=== PATIENT | male | born 1960 | race Caucasian/White ===

== ENCOUNTER → 2023-11-12 | Outpatient (CLI) | payer OTHER, SELFPAY ==
--- NOTE | 2023-11-12 10:31 | RAD_ITS ---
EXAM: XR PELVIS, 1 OR 2 VIEWS CLINICAL INDICATION: PAIN TECHNIQUE: Frontal view of the pelvis. COMPARISON: No relevant prior studies available. FINDINGS: BONES/JOINTS: Degenerative findings in the lumbar spine. No displaced fracture. No destructive or sclerotic lesions. Note that overlapping bowel shadows may however obscure fine detail. Sacroiliac joints are unremarkable. No widening of the pubic symphysis. SOFT TISSUES: Unremarkable. No soft tissue swelling or gas. VASCULATURE: Calcified phleboliths in the pelvis. RAD/Pelvis 1 or 2 Views IMPRESSION: No acute findings in the pelvis. Electronically Signed: Angelo Mo MD at 15:04 EDT ,
[2023-11-12 12:20] LABS: Erythrocyte Sedimentation Rate 4 mm/hr (0-20)
[2023-11-12 12:23] LABS: Absolute Neutrophil Count 1.8 X10^3/uL (2.0-7.7); Basophil# 0.07 X10^3/uL; Basophil% 1.7 % (0-1); Eosinophil# 0.05 X10^3/uL; Eosinophils% 1.2 % (0-5); Hematocrit 47.6 % (40-54); Hemoglobin 15.7 g/dL (13.0-16.5); Lymphocyte % 30.8 % (19-41); Mean Corpuscular Volume 97.1 fL (80-94); Mean Platelet Vol. 10.5 fl (6.2-12.0); Monocyte# 0.97 X10^3/uL; NRBC Flagged by Analyzer 0 % (0-5); Neutrophil # 1.79 X10^3/uL (2.7-7.7); Neutrophil % 42.4 % (47-70); Platelet Count 254 K/mm3 (150-450); RBC Distribution Width CV 13.2 % (11.6-14.6); White Blood Count 4.2 K/mm3 (4.4-11.0)
[2023-11-12 13:07] LABS: Hepatitis B Surface Antibody Non-Reactive; Hepatitis B Surface Antigen Non-Reactive (Nonreactive); Hepatitis C Antibody Non-Reactive (Nonreactive)
[2023-11-12 13:22] LABS: AST(SGOT) 41 U/L (15-37); Alanine Aminotransfer ALT/SGPT 53 U/L (16-61); Albumin, Serum 3.8 g/dL (3.2-5.0); Alkaline Phosphatase 80 U/L (45-117); Anion Gap 8 (5-15); BUN 14 mg/dL (7-18); BUN/Creat Ratio 14.8 RATIO (10-20); Calcium,Total 9.6 mg/dL (8.5-10.1); Chloride 98 mmol/L (98-107); Creatinine, Serum 0.94 mg/dL (0.70-1.30); EST Glomerular Filtration Rate 86 mL/min (>60); Est Glom Filt Rate - Afr Amer 104 mL/min (>60); Globulin 3.7 g/dL (2.2-4.2); Glucose 93 mg/dL (74-106); Potassium 3.7 mmol/L (3.5-5.1); Protein, Total 7.5 g/dL (6.4-8.2); Rheumatoid Factor < 10.0 IU/mL (<15); Sodium Level 133 mmol/L (136-145)
[2023-11-15 09:07] LABS: ANTINUCLEAR ANTIBODIES DIRECT Negative (Negative)
[2023-11-19 17:07] LABS: CCP IgG Antibodies 0 units (0-19); HLA B27 Positive (.); QNTFERON TB Mitogen Value > 10.00 IU/mL (.); QNTFERON TB Nil Value 0.13 IU/mL (.); QNTFERON TB1+ Ag Value 0.16 IU/mL (.); QNTFERON TB2+ Ag Value 0.12 IU/mL (.); QNTIFERON TB Positive Criteria Negative (Negative)
== END | disposition home or self-care (01) ==
LOC: MTLAB 10:29
PROVIDERS: Referring Provider Internal Medicine Rheumatology; Visit Provider Internal Medicine Rheumatology
DX: M06.4 Inflammatory polyarthropathy (principal); M47.897 Other spondylosis, lumbosacral region
CPT/HCPCS: 36415; 72170; 80053; 81374; 85025; 85652; 86038; 86140; 86200; 86431; 86480; 86706; 86803; 87340

== ENCOUNTER → 2025-01-16 | Outpatient (CLI) | payer OTHER, SELFPAY ==
[2025-01-16 12:25] LABS: Absolute Lymphocyte Count 1.43 X10^3/uL (0.83-4.51); Absolute Neutrophil Count 2.9 X10^3/uL (2.0-7.7); Basophil# 0.09 X10^3/uL; Basophil% 1.7 % (0-1); Eosinophil# 0.33 X10^3/uL; Eosinophils% 6.1 % (0-5); Erythrocyte Sedimentation Rate 2 mm/hr (0-20); Hematocrit 42.9 % (40-54); Hemoglobin 14.4 g/dL (13.0-16.5); Lymphocyte # 1.43 X10^3/ul (0.83-4.51); Lymphocyte % 26.6 % (19-41); Mean Corp Hgb Conc 33.6 g/dL (32-36); Mean Corpuscular Hgb 32.7 pg (27.0-32.0); Mean Corpuscular Volume 97.3 fL (80-94); Mean Platelet Vol. 10.9 fl (6.2-12.0); Monocyte# 0.63 X10^3/uL; Monocyte% 11.7 % (0-10); NRBC Flagged by Analyzer 0 % (0-5); Neutrophil # 2.86 X10^3/uL (2.7-7.7); Neutrophil % 53.2 % (47-70); Platelet Count 273 K/mm3 (150-450); RBC Distribution Width CV 12.9 % (11.6-14.6); RBC Distribution Width SD 46.6 fl (35.1-43.9); Red Blood Count 4.41 M/mm3 (4.6-6.2); White Blood Count 5.4 K/mm3 (4.4-11.0)
[2025-01-16 12:48] LABS: AST(SGOT) 27 U/L (<=37); Alanine Aminotransfer ALT/SGPT 35 U/L (<=46); Albumin, Serum 4.5 g/dL (3.4-4.8); Alkaline Phosphatase 76 U/L (40-129); Anion Gap 14 (5-15); BUN 14 mg/dL (4-19); BUN/Creat Ratio 15.9 RATIO (10-20); CRP < 3.00 mg/L (0.0-3.0); Calcium,Total 9.4 mg/dL (7.6-11.0); Carbon Dioxide 22.4 mmol/L (21.0-32.0); Chloride 103 mmol/L (98-108); Creatinine, Serum 0.86 mg/dL (0.70-1.20); EST Glomerular Filtration Rate 97 (>60); Globulin 2.2 g/dL (2.2-4.2); Glucose 95 mg/dL (70-99); Potassium 4.1 mmol/L (3.3-5.1); Protein, Total 6.7 g/dL (5.9-8.4); Sodium Level 139 mmol/L (133-145); Total Bilirubin 0.64 mg/dL (0.00-1.30)
--- OUTSIDE RECORDS SUMMARY | 2025-01-16 22:46 | XMS RPT_ITS | CCD ---
Author Organization [employer] PROGRESS DEVELOPER [facility] Care Team Providers Care Panel Coverer Name Role Phone TAWNY GONZALEZ, JONEL MCKEON Primary Care Physician [phone] [place] [address] Primary Care Unavailable Estephania Mendoza Referring Unavailable Estephania Mendoza Attending Keira EVANGELISTA MD, [facility]Wilfredo Primary Care Netta EVANGELISTA MD, INNA Attending Netta EVANGELISTA MD, [facility] Primary Care UnavailPITO Brice DO Attending Keira EVANGELISTA MD, [facility] Primary Care Unavailmoncho EVANGELISTA MD, INNA Attending Netta HECTOR MD, MD JONEL MCKEON Primary Care Daniele HECTOR MD, MD JONEL MCKEON Attending Daniele EVANGELISTA MD, [facility] Primary [facility] Unavailmoncho MENDOZA MD, DR BEST Attending Netta EVANGELISTA MD, [facility] Primary [facility] Netta MENDOZA MD, DR BEST Attending Netta MENDOZA MD, DR BE[facility] Attending Netta EVANGELISTA MD, [facility] Primary [facility] Netta EVANGELISTA MD, INNA Attending Netta EVANGELISTA MD, [facility] Primary [facility] Unavailabl e Allergies Allergy Classification Reported Allergen(s) Allergy Type Date of Onset Reaction(s) Facility (2 sources) Aspirin; Translations: [aspirin] Drug Allergy aspirin, anaphylaxsis [facility] Work Phone: Medications Current Medications Medication Drug Class(es) Dates Sig (Normalized) Sig (Original) acetaminophen 325 mg oral capsule (2 sources) Start: 10-03-2020 Tylenol 325 mg oral capsule Dose : 650 mg = 2 cap(s), Oral, q4h, PRN as needed for fever, # 20 cap(s), 0 Refill(s) Start Date: 10/03/20 Status: Ordered acetaminophen 325 mg / HYDROcodone bitartrate 5 mg oral tablet (2 sources) Opioid Agonist Start: 10-01-2021 End: 10-31-2021 take 0.5-1 tablets by mouth once daily acetaminophen-hyd rocodone 325 mg-5 mg oral tablet 0.5-1 tab(s), Oral, qDay, oarrs 07/08/21 fill on 08/05/2021, # 30 tab(s), 0 Refill(s), Pain Start Date: 10/01/21 Stop Date: 10/31/21 Status: Ordered Start: 07-30-2021 End: 08-29-2021 take 0.5-1 tablets by mouth once daily acetaminophen-hydrocodone 325 mg-5 mg or al tablet 0.5-1 tab(s), Oral, qDay, oarrs 07/08/21 fill on 08/05/2021, # 30 tab(s), 0 Refill(s), Pain Start Date: 07/30/21 Stop Date: 08/29/21 Status: Ordered dexamethasone 1 mg oral tablet (2 sources) Corticosteroid Start: 10-01-2021 End: 10-31-2021 dexamethasone 1 mg oral tablet Dose : 1 mg = 1 tab(s), Oral, qDay, X 30 day(s), # 30 tab(s), 0 Refill(s), 10/31/21 15:45:00 EDT, Pharmacy: [facility], Right foot pain, 172.7, cm, 10/01/21 15:25:00 EST, Height, kg, 10/01/21 15:25:00 EST, Dosing Weight Start Date: 10/01/21 Stop Date: 10/31/21 Status: Ordered Start: 08-18-2021 End: 09-07-2021 dexamethasone 1 mg oral tabl et Dose : 1 mg = 1 tab(s), Oral, Every other day, X 10 day(s), # 5 tab(s), 1 Refill(s), 09/07/21 13:40:00 EST, Pharmacy: [facility], 167, cm, 08/18/21 13:15:00 EST, Height, kg, 08/18/21 13:15:00 EST, Dosing Weight Start Date: 08/18/21 Stop Date: 09/07/21 Status: Ordered phentermine hydrochloride 37.5 mg oral tablet (1 source) Sympathomimetic Amine Anorectic Start: 10-01-2021 End: 10-31-2021 Adipex-P 37.5 mg oral tablet Dose : 18.75 mg = 0.5 tab(s), Oral, qDay, X 30 day(s), # 15 tab(s), 0 Refill(s), 10/31/21 15:46:00 EDT, Obesity Start Date: 10/01/21 Stop Date: 10/31/21 Status: Ordered Problems Active Problems Problem Classification Problem Date Documented Date Episodic/Chronic Disorders of lipid metabolism (3 sources) Hyperlipidemia; Translations: [Hyperlipidemia, unspecified] Onset: 03-23-2023 09-08-2021 Chronic Other congenital anomalies (2 sources) Other congenital malformations of nails; 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-2023 Chronic Other connective tissue disease (1 source) Foot pain 10-01-2021 Episodic Other diseases of veins and lymphatics (2 sources) Abdominal varicosities 07-30-2021 Episodic Other liver diseases (1 source) Steatosis of liver 09-08-2021 Chronic Other non-traumatic joint disorders (2 sources) Knee pain 08-18-2021 Episodic Other nutritional; endocrine; and metabolic disorders (1 source) Obesity 09-08-2021 Chronic Other nutritional; endocrine; and metabolic disorders (2 sources) Body mass index (BMI) 35.0-35.9, adult; Translations: [Body mass index [BMI] 35.0-35.9, adult] Onset: 03-23-2023 Chronic Rheumatoid arthritis and related disease (1 source) Inflammatory polyarthropathy; Translations: [Inflammatory polyarthropathy] Onset: 12-09-2023 Chronic Past or Other Problems Problem Classification Problem Date Documented Da te Episodic/Chronic Other screening for suspected conditions (not mental disorders or infectious disease) (2 sources) Encounter for screening for other suspected endocrine disorder; Translations: [Encounter for screening for other suspected endocrine disorder] Onset: 03-23-2023 Episodic Spondylosis; intervertebral disc disorders; other back problems (4 sources) Backache; Translations: [Dorsalgia, unspecified] Onset: 03-23-2023 07-30-2021 Episodic Results Test Name Value Interpretation Reference Range Facility .Auto Diffon 08-07-2024 Basophil, Absolute 0.1 10 3/mcL Normal 0.0-0.3 [facility] Comment on above: Performed By: #### C BC, CMP, GFR, ANEU, ADIFF #### [address] [address] Basophils/100 WBC (Bld) 1.2 % Normal 0.0-2.5 [facility] Comment on above: Performed By: #### C BC, CMP, GFR, ANEU, ADIFF #### [address] [address] Eosinophil, Absolute 0.5 10 3/mcL Normal 0.0-0.7 [facility] Comment on above: Performed By: #### C BC, CMP, GFR, ANEU, ADIFF #### [address] [address] Eosinophils/100 WBC (Bld) 8.3 % High 0.0-6.0 [facility] Comment on above: Performed By: #### C BC, CMP, GFR, ANEU, ADIFF #### [address] [address] Lymphocyte, Absolute 1.3 10 3/mcL Normal 0.9-4.3 [facility] Comment on above: Performed By: #### C BC, CMP, GFR, ANEU, ADIFF #### [address] [address] Lymphocytes/100 WBC (Bld) 24.0 % Normal 20.0-40.0 [facility] Comment on above: Performed By: #### C BC, CMP, GFR, ANEU, ADIFF #### [address] [address] Monocyte, Absolute 0.8 10 3/mcL Normal 0.1-1.4 [facility] Comment on above: Performed By: #### C BC, CMP, GFR, ANEU, ADIFF #### [address] [address] Monocytes/100 WBC (Bld) 14.0 % High 2.0-13.0 [facility] Comment on above: Performed By: #### C BC, CMP, GFR, ANEU, ADIFF #### [address] [address] Neutrophils/100 WBC (Bld) 52.5 % Normal 50.0-75.0 [facility] Comment on above: Performed By: #### C BC, CMP, GFR, ANEU, ADIFF #### [address] [address] .GFRon 08-07-2024 GFR >60 Normal [facility] Comment on above: Result Comment: GFR Population mean for , Non- Americans Ages 20-29 = 116 mL/min/1.73 sq.m. Ages 30-39 = 107 mL/min/1.73 sq.m. Ages 40-49 = 99 mL/min/1.73 sq.m. Ages 50-59 = 93 mL/min/1.73 sq.m. Ages 60-69 = 85 mL/min/1.73 sq.m. Ages 70+ = 75 mL/min/1.73 sq.m. Chronic Kidney Disease: Less than 60 mL/min/1.73 square meters End Stage Renal Disease: Less than 15 mL/min/1.73 square meters Performed By: #### C BC, CMP, GFR, ANEU, ADIFF #### [address] [address] GFR Non- >60 Normal [facility] Comment on above: Result Comment: GFR Population mean for , Non- Americans Ages 20-29 = 116 mL/min/1.73 sq.m. Ages 30-39 = 107 mL/min/1.73 sq.m. Ages 40-49 = 99 mL/min/1.73 sq.m. Ages 50-59 = 93 mL/min/1.73 sq.m. Ages 60-69 = 85 mL/min/1.73 sq.m. Ages 70+ = 75 mL/min/1.73 sq.m. Chronic Kidney Disease: Less than 60 mL/min/1.73 square meters End Stage Renal Disease: Less than 15 mL/min/1.73 square meters Performed By: #### C BC, CMP, GFR, ANEU, ADIFF #### [place] [address] .NEUABSon 08-07-2024 Neutrophil, Absolute 2.9 10 3/mcL Normal 2.3-8.1 [facility] Comment on above: Performed By: #### C BC, CMP, GFR, ANEU, ADIFF #### [place] [address] CBCon 08-07-2024 Erythrocyte distribution width (RBC) [Ratio] 12.8 % Normal 11.5-15.5 [facility] Comment on above: Performed By: #### C BC, CMP, GFR, ANEU, ADIFF #### [place] [address] Hematocrit (Bld) [Volume fraction] 44.0 % Normal 40.0-52.0 [facility] Comment on above: Performed By: #### C BC, CMP, GFR, ANEU, ADIFF #### [place] [address] Hgb 14.9 G/dL Normal 13.0-17.5 [facility] Comment on above: Performed By: #### C BC, CMP, GFR, ANEU, ADIFF #### [place] [address] MCH (RBC) [Entitic mass] 32.9 pg Normal 27.0-33.0 [facility] Comment on above: Performed By: #### C BC, CMP, GFR, ANEU, ADIFF #### [place] [address] MCHC 33.9 G/dL Normal 32.0-36.0 [facility] Comment on above: Performed By: #### C BC, CMP, GFR, ANEU, ADIFF #### [facility] [address] [place], [place] [address] MCV (RBC) [Entitic vol] 97.1 fL Normal 81.0-100.0 [facility] Comment on above: Performed By: #### C BC, CMP, GFR, ANEU, ADIFF #### [place] [address] Platelet 239 10 3/mcL Normal 150-450 [facility] Comment on above: Performed By: #### C BC, CMP, GFR, ANEU, ADIFF #### [place] [address] Platelet mean volume (Bld) [Entitic vol] 8.9 fL Normal 6.4-10.5 [facility] Comment on above: Performed By: #### C BC, CMP, GFR, ANEU, ADIFF #### [place] [address] RBC 4.53 10 6/mcL Normal 4.50-6.00 [facility] Comment on above: Performed By: #### C BC, CMP, GFR, ANEU, ADIFF #### [place] [address] WBC 5.5 10 3/mcL Normal 4.5-10.8 [facility] Comment on above: Performed By: #### C BC, CMP, GFR, ANEU, ADIFF #### [place] [address] CMPon 08-07-2024 Albumin Level 4.0 G/dL Normal 3.2-4.8 [facility] Comment on above: Performed By: #### C BC, CMP, GFR, ANEU, ADIFF #### [place] [address] Albumin/Globulin [Mass ratio] 1.5 {ratio} Normal 0.9-1.6 [facility] Comment on above: Performed By: #### C BC, CMP, GFR, ANEU, ADIFF #### [place] [address] ALP [Catalytic activity/Vol] 80 U/L Normal 38-126 [facility] Comment on above: Performed By: #### C BC, CMP, GFR, ANEU, ADIFF #### [address] [address] ALT [Catalytic activity/Vol] 33 U/L Normal 12-55 [facility] Comment on above: Performed By: #### C BC, CMP, GFR, ANEU, ADIFF #### [address] [address] AST [Catalytic activity/Vol] 23 U/L Normal 8-34 [facility] Comment on above: Performed By: #### C BC, CMP, GFR, ANEU, ADIFF #### [address] [address] Bili Total 0.70 mg/dL Normal 0.20-1.20 [facility] Comment on above: Result Comment: Use of this assay is not recommended for patients undergoing treatment with eltrombopag due to the potential for falsely elevated results. Performed By: #### C BC, CMP, GFR, ANEU, ADIFF #### [address] [address] BUN/Creatinine Ratio 18.1 ratio Normal 10.0-22.0 [facility] Comment on above: Performed By: #### C BC, CMP, GFR, ANEU, ADIFF #### [address] [address] Calcium [Mass/Vol] 9.8 mg/dL Normal 8.7-10.4 [facility] Comment on above: Performed By: #### C BC, CMP, GFR, ANEU, ADIFF #### [address] [address] Chloride [Moles/Vol] 106 mmol/L Normal 98-110 [facility] Comment on above: Performed By: #### C BC, CMP, GFR, ANEU, ADIFF #### [address] [address] CO2 [Moles/Vol] 26 mmol/L Normal 22-32 [facility] Comment on above: Performed By: #### C BC, CMP, GFR, ANEU, ADIFF #### [address] [address] Creatinine [Mass/Vol] 0.83 mg/dL Normal 0.60-1.40 [facility] Comment on above: Result Comment: Test ing performed on TiGenix analyzer using enzymatic creatinine methodology. Performed By: #### C BC, CMP, GFR, ANEU, ADIFF #### [address] [address] Electrolyte Balance 8.0 mEq/L Normal 4.0-15.0 [facility] Comment on above: Performed By: #### C BC, CMP, GFR, ANEU, ADIFF #### [address] [address] Globulin 2.7 G/dL Normal 1.5-3.8 [facility] Comment on above: Performed By: #### C BC, CMP, GFR, ANEU, ADIFF #### [address] [address] Glucose [Mass/Vol] 97 mg/dL Normal 82-115 [facility] Comment on above: Performed By: #### C BC, CMP, GFR, ANEU, ADIFF #### [address] [address] Potassium [Moles/Vol] 4.6 mmol/L Normal 3.5-5.0 [facility] Comment on above: Performed By: #### C BC, CMP, GFR, ANEU, ADIFF #### [address] [address] Sodium [Moles/Vol] 140 mmol/L Normal 136-145 [facility] Comment on above: Performed By: #### C BC, CMP, GFR, ANEU, ADIFF #### [address] [address] Total Protein 6.7 G/dL Normal 5.7-8.2 [facility] Comment on above: Performed By: #### C BC, CMP, GFR, ANEU, ADIFF #### [address] [address] Urea nitrogen [Mass/Vol] 15.0 mg/dL Normal 8.0-22.0 [facility] Comment on above: Performed By: #### C BC, CMP, GFR, ANEU, ADIFF #### [address] [address] LIPIDon 08-07-2024 Cholesterol [Mass/Vol] 229 mg/dL High 50-199 [facility] Comment on above: Result Comment: Chol esterol Reference Interval: Less than 200 Desirable 200-239 Borderline high risk 240 and above High risk Performed By: #### C BC, ANEU, ADIFF, CMP, GFR #### [address] [address] Cholesterol in HDL [Mass/Vol] 55 mg/dL Normal 40-59 [facility] Comment on above: Performed By: #### C BC, ANEU, ADIFF, CMP, GFR #### [address] [address] Cholesterol in LDL [Mass/Vol] 117 mg/dL Normal 0-129 [facility] Comment on above: Performed By: #### C BC, ANEU, ADIFF, CMP, GFR #### [address] [address] Triglyceride [Mass/Vol] 284 mg/dL High 3-149 [facility] Comment on above: Performed By: #### C BC, ANEU, ADIFF, CMP, GFR #### [address] [address] PSAon 08-07-2024 Prostate Specific Antigen 0.72 ng/mL Normal 0.02-4.00 [facility] Comment on above: Result Comment: Katia ent results determined by assays using different manufacturers for methods may not be comparable. Performed By: #### C BC, ANEU, ADIFF, CMP, GFR #### [address] [address] .Auto Diffon 04-27-2024 Basophil, Absolute 0.1 10 3/mcL Normal 0.0-0.3 [facility] Comment on above: Performed By: #### C BC, ANEU, ADIFF, CMP, GFR #### [address] [address] Basophils/100 WBC (Bld) 2.5 % Normal 0.0-2.5 [facility] Comment on above: Performed By: #### C BC, ANEU, ADIFF, CMP, GFR #### [address] [address] Eosinophil, Absolute 0.3 10 3/mcL Normal 0.0-0.7 [facility] Comment on above: Performed By: #### C BC, ANEU, ADIFF, CMP, GFR #### [address] [address] Eosinophils/100 WBC (Bld) 6.8 % High 0.0-6.0 [facility] Comment on above: Performed By: #### C BC, ANEU, ADIFF, CMP, GFR #### [address] [address] Lymphocyte, Absolute 1.2 10 3/mcL Normal 0.9-4.3 [facility] Comment on above: Performed By: #### C BC, ANEU, ADIFF, CMP, GFR #### [address] [address] Lymphocytes/100 WBC (Bld) 23.9 % Normal 20.0-40.0 [facility] Comment on above: Performed By: #### C BC, ANEU, ADIFF, CMP, GFR #### [address] [address] Monocyte, Absolute 0.5 10 3/mcL Normal 0.1-1.4 [facility] Comment on above: Performed By: #### C BC, ANEU, ADIFF, CMP, GFR #### [address] [address] Monocytes/100 WBC (Bld) 10.4 % Normal 2.0-13.0 [facility] Comment on above: Performed By: #### C BC, ANEU, ADIFF, CMP, GFR #### [address] [address] Neutrophils/100 WBC (Bld) 56.4 % Normal 50.0-75.0 [facility] Comment on above: Performed By: #### C BC, ANEU, ADIFF, CMP, GFR #### [address] [address] .GFRon 04-27-2024 GFR >60 Normal [facility] Comment on above: Result Comment: GFR Population mean for , Non- Americans Ages 20-29 = 116 mL/min/1.73 sq.m. Ages 30-39 = 107 mL/min/1.73 sq.m. Ages 40-49 = 99 mL/min/1.73 sq.m. Ages 50-59 = 93 mL/min/1.73 sq.m. Ages 60-69 = 85 mL/min/1.73 sq.m. Ages 70+ = 75 mL/min/1.73 sq.m. Chronic Kidney Disease: Less than 60 mL/min/1.73 square meters End Stage Renal Disease: Less than 15 mL/min/1.73 square meters Performed By: #### C BC, ANEU, ADIFF, CMP, GFR #### [place] [address] GFR Non- >60 Normal [facility] Comment on above: Result Comment: GFR Population mean for , Non- Americans Ages 20-29 = 116 mL/min/1.73 sq.m. Ages 30-39 = 107 mL/min/1.73 sq.m. Ages 40-49 = 99 mL/min/1.73 sq.m. Ages 50-59 = 93 mL/min/1.73 sq.m. Ages 60-69 = 85 mL/min/1.73 sq.m. Ages 70+ = 75 mL/min/1.73 sq.m. Chronic Kidney Disease: Less than 60 mL/min/1.73 square meters End Stage Renal Disease: Less than 15 mL/min/1.73 square meters Performed By: #### C BC, ANEU, ADIFF, CMP, GFR #### [address] [address] .NEUABSon 04-27-2024 Neutrophil, Absolute 2.8 10 3/mcL Normal 2.3-8.1 [facility] Comment on above: Performed By: #### C BC, ANEU, ADIFF, CMP, GFR #### [address] [address] CBCon 04-27-2024 Erythrocyte distribution width (RBC) [Ratio] 12.6 % Normal 11.5-15.5 [facility] Comment on above: Performed By: #### C BC, ANEU, ADIFF, CMP, GFR #### [place] [address] Hematocrit (Bld) [Volume fraction] 43.2 % Normal 40.0-52.0 [facility] Comment on above: Performed By: #### C BC, ANEU, ADIFF, CMP, GFR #### [place] [address] Hgb 14.7 G/dL Normal 13.0-17.5 [facility] Comment on above: Performed By: #### C BC, ANEU, ADIFF, CMP, GFR #### [place] [address] MCH (RBC) [Entitic mass] 33.2 pg High 27.0-33.0 [facility] Comment on above: Performed By: #### C BC, ANEU, ADIFF, CMP, GFR #### [place] [address] MCHC 33.9 G/dL Normal 32.0-36.0 [facility] Comment on above: Performed By: #### C BC, ANEU, ADIFF, CMP, GFR #### [place] [address] MCV (RBC) [Entitic vol] 97.8 fL Normal 81.0-100.0 [facility] Comment on above: Performed By: #### C BC, ANEU, ADIFF, CMP, GFR #### [place] [address] Platelet 249 10 3/mcL Normal 150-450 [facility] Comment on above: Performed By: #### C BC, ANEU, ADIFF, CMP, GFR #### [place] [address] Platelet mean volume (Bld) [Entitic vol] 9.4 fL Normal 6.4-10.5 [facility] Comment on above: Performed By: #### C BC, ANEU, ADIFF, CMP, GFR #### [address] [address] RBC 4.41 10 6/mcL Low 4.50-6.00 [facility] Comment on above: Performed By: #### C BC, ANEU, ADIFF, CMP, GFR #### [address] [address] WBC 4.9 10 3/mcL Normal 4.5-10.8 [facility] Comment on above: Performed By: #### C BC, ANEU, ADIFF, CMP, GFR #### [address] [address] CMPon 04-27-2024 Albumin Level 4.1 G/dL Normal 3.2-4.8 [facility] Comment on above: Performed By: #### C BC, ANEU, ADIFF, CMP, GFR #### [place] [address] Albumin/Globulin [Mass ratio] 1.7 {ratio} High 0.9-1.6 [facility] Comment on above: Performed By: #### C BC, ANEU, ADIFF, CMP, GFR #### [address] [address] ALP [Catalytic activity/Vol] 72 U/L Normal 38-126 [facility] Comment on above: Performed By: #### C BC, ANEU, ADIFF, CMP, GFR #### [address] [address] ALT [Catalytic activity/Vol] 54 U/L Normal 12-55 [facility] Comment on above: Performed By: #### C BC, ANEU, ADIFF, CMP, GFR #### [address] [address] AST [Catalytic activity/Vol] 34 U/L Normal 8-34 [facility] Comment on above: Performed By: #### C BC, ANEU, ADIFF, CMP, GFR #### [place] [address] Bili Total 0.90 mg/dL Normal 0.20-1.20 [facility] Comment on above: Result Comment: Use of this assay is not recommended for patients undergoing treatment with eltrombopag due to the potential for falsely elevated results. Performed By: #### C BC, ANEU, ADIFF, CMP, GFR #### [place] [id number] BUN/Creatinine Ratio 15.9 ratio Normal 10.0-22.0 [facility] Comment on above: Performed By: #### C BC, ANEU, ADIFF, CMP, GFR #### [place] [id number] Calcium [Mass/Vol] 10.2 mg/dL Normal 8.7-10.4 [facility] Comment on above: Performed By: #### C BC, ANEU, ADIFF, CMP, GFR #### [place] [id number] Chloride [Moles/Vol] 108 mmol/L Normal 98-110 [facility] Comment on above: Performed By: #### C BC, ANEU, ADIFF, CMP, GFR #### [place] [id number] CO2 [Moles/Vol] 25 mmol/L Normal 22-32 [facility] Comment on above: Performed By: #### C BC, ANEU, ADIFF, CMP, GFR #### [address] [address] Creatinine [Mass/Vol] 0.82 mg/dL Normal 0.60-1.40 [facility] Comment on above: Result Comment: Test ing performed on Ti[employer] analyzer using enzymatic creatinine methodology. Performed By: #### C BC, ANEU, ADIFF, CMP, GFR #### [address] [address] Electrolyte Balance 5.0 mEq/L Normal 4.0-15.0 [facility] Comment on above: Performed By: #### C BC, ANEU, ADIFF, CMP, GFR #### [place] [id number] Globulin 2.4 G/dL Normal 1.5-3.8 [facility] Comment on above: Performed By: #### C BC, ANEU, ADIFF, CMP, GFR #### [address] [address] Glucose [Mass/Vol] 97 mg/dL Normal 82-115 [facility] Comment on above: Performed By: #### C BC, ANEU, ADIFF, CMP, GFR #### [address] [address] Potassium [Moles/Vol] 4.6 mmol/L Normal 3.5-5.0 [facility] Comment on above: Performed By: #### C BC, ANEU, ADIFF, CMP, GFR #### [address] [address] Sodium [Moles/Vol] 138 mmol/L Normal 136-145 [facility] Comment on above: Performed By: #### C BC, ANEU, ADIFF, CMP, GFR #### [place] [id number] Total Protein 6.5 G/dL Normal 5.7-8.2 [facility] Comment on above: Result Comment: No te - New Reference Range in effect 20 Performed By: #### C BC, ANEU, ADIFF, CMP, GFR #### [address] [address] Urea nitrogen [Mass/Vol] 13.0 mg/dL Normal 8.0-22.0 [facility] Comment on above: Performed By: #### C BC, ANEU, ADIFF, CMP, GFR #### [address] [address] .Auto Diffon 02-01-2024 Basophil, Absolute 0.1 10 3/mcL Normal 0.0-0.3 [facility] ([place]) Comment on above: Performed By: #### A DIFF, FOL, TSH, LIPID, ANEU, B12, FT3, CMP, CBC, GFR, FT4 #### [address] [address] Basophils/100 WBC (Bld) 1.3 % Normal 0.0-2.5 [facility] ([place]) Comment on above: Performed By: #### A DIFF, FOL, TSH, LIPID, ANEU, B12, FT3, CMP, CBC, GFR, FT4 #### [address] [address] Eosinophil, Absolute 0.1 10 3/mcL Normal 0.0-0.7 [facility] ([place]) Comment on above: Performed By: #### A DIFF, FOL, TSH, LIPID, ANEU, B12, FT3, CMP, CBC, GFR, FT4 #### [address] [address] Eosinophils/100 WBC (Bld) 1.6 % Normal 0.0-6.0 [facility] ([place]) Comment on above: Performed By: #### A DIFF, FOL, TSH, LIPID, ANEU, B12, FT3, CMP, CBC, GFR, FT4 #### [address] [address] Lymphocyte, Absolute 0.9 10 3/mcL Normal 0.9-4.3 [facility] ([place]) Comment on above: Performed By: #### A DIFF, FOL, TSH, LIPID, ANEU, B12, FT3, CMP, CBC, GFR, FT4 #### [address] [address] Lymphocytes/100 WBC (Bld) 15.0 % Low 20.0-40.0 [facility] ([place]) Comment on above: Performed By: #### A DIFF, FOL, TSH, LIPID, ANEU, B12, FT3, CMP, CBC, GFR, FT4 #### [address] [address] Monocyte, Absolute 0.4 10 3/mcL Normal 0.1-1.4 [facility] ([place]) Comment on above: Performed By: #### A DIFF, FOL, TSH, LIPID, ANEU, B12, FT3, CMP, CBC, GFR, FT4 #### [address] [address] Monocytes/100 WBC (Bld) 6.9 % Normal 2.0-13.0 [facility] ([place]) Comment on above: Performed By: #### A DIFF, FOL, TSH, LIPID, ANEU, B12, FT3, CMP, CBC, GFR, FT4 #### [address] [address] Neutrophils/100 WBC (Bld) 75.2 % High 50.0-75.0 [facility] ([place]) Comment on above: Performed By: #### A DIFF, FOL, TSH, LIPID, ANEU, B12, FT3, CMP, CBC, GFR, FT4 #### [address] [address] .GFRon 02-01-2024 GFR >60 Normal [facility] ([place]) Comment on above: Result Comment: GFR Population mean for , Non- Americans Ages 20-29 = 116 mL/min/1.73 sq.m. Ages 30-39 = 107 mL/min/1.73 sq.m. Ages 40-49 = 99 mL/min/1.73 sq.m. Ages 50-59 = 93 mL/min/1.73 sq.m. Ages 60-69 = 85 mL/min/1.73 sq.m. Ages 70+ = 75 mL/min/1.73 sq.m. Chronic Kidney Disease: Less than 60 mL/min/1.73 square meters End Stage Renal Disease: Less than 15 mL/min/1.73 square meters Performed By: #### A DIFF, FOL, TSH, LIPID, ANEU, B12, FT3, CMP, CBC, GFR, FT4 #### [address] [address] GFR Non- >60 Normal [facility] ([place]) Comment on above: Result Comment: GFR Population mean for , Non- Americans Ages 20-29 = 116 mL/min/1.73 sq.m. Ages 30-39 = 107 mL/min/1.73 sq.m. Ages 40-49 = 99 mL/min/1.73 sq.m. Ages 50-59 = 93 mL/min/1.73 sq.m. Ages 60-69 = 85 mL/min/1.73 sq.m. Ages 70+ = 75 mL/min/1.73 sq.m. Chronic Kidney Disease: Less than 60 mL/min/1.73 square meters End Stage Renal Disease: Less than 15 mL/min/1.73 square meters Performed By: #### A DIFF, FOL, TSH, LIPID, ANEU, B12, FT3, CMP, CBC, GFR, FT4 #### [address] [address] .NEUABSon 02-01-2024 Neutrophil, Absolute 4.4 10 3/mcL Normal 2.3-8.1 [facility] ([place]) Comment on above: Performed By: #### A DIFF, FOL, TSH, LIPID, ANEU, B12, FT3, CMP, CBC, GFR, FT4 #### [place] [address] CBCon 02-01-2024 Erythrocyte distribution width (RBC) [Ratio] 13.7 % Normal 11.5-15.5 [facility] ([place]) Comment on above: Performed By: #### A DIFF, FOL, TSH, LIPID, ANEU, B12, FT3, CMP, CBC, GFR, FT4 #### [place] [address] Hematocrit (Bld) [Volume fraction] 43.5 % Normal 40.0-52.0 [facility] ([place]) Comment on above: Performed By: #### A DIFF, FOL, TSH, LIPID, ANEU, B12, FT3, CMP, CBC, GFR, FT4 #### [place] [address] Hgb 14.9 G/dL Normal 13.0-17.5 [facility] ([place]) Comment on above: Performed By: #### A DIFF, FOL, TSH, LIPID, ANEU, B12, FT3, CMP, CBC, GFR, FT4 #### [place] [address] MCH (RBC) [Entitic mass] 33.4 pg High 27.0-33.0 [facility] ([place]) Comment on above: Performed By: #### A DIFF, FOL, TSH, LIPID, ANEU, B12, FT3, CMP, CBC, GFR, FT4 #### [place] [address] MCHC 34.4 G/dL Normal 32.0-36.0 [facility] ([place] Comment on above: Performed By: #### A DIFF, FOL, TSH, LIPID, ANEU, B12, FT3, CMP, CBC, GFR, FT4 #### [place] [address] MCV (RBC) [Entitic vol] 97.1 fL Normal 81.0-100.0 [facility] ([place]) Comment on above: Performed By: #### A DIFF, FOL, TSH, LIPID, ANEU, B12, FT3, CMP, CBC, GFR, FT4 #### [place] [id number] Platelet 231 10 3/mcL Normal 150-450 [facility] ([place]) Comment on above: Performed By: #### A DIFF, FOL, TSH, LIPID, ANEU, B12, FT3, CMP, CBC, GFR, FT4 #### [place] [id number] Platelet mean volume (Bld) [Entitic vol] 9.3 fL Normal 6.4-10.5 [facility] ([place]) Comment on above: Performed By: #### A DIFF, FOL, TSH, LIPID, ANEU, B12, FT3, CMP, CBC, GFR, FT4 #### [place] [address] RBC 4.48 10 6/mcL Low 4.50-6.00 [facility] ([place] Comment on above: Performed By: #### A DIFF, FOL, TSH, LIPID, ANEU, B12, FT3, CMP, CBC, GFR, FT4 #### [place] [address] WBC 5.9 10 3/mcL Normal 4.5-10.8 [facility] ([place]) Comment on above: Performed By: #### A DIFF, FOL, TSH, LIPID, ANEU, B12, FT3, CMP, CBC, GFR, FT4 #### [place] [id number] CMPon 02-01-2024 Albumin Level 4.5 G/dL Normal 3.2-4.8 [facility] ([place]) Comment on above: Performed By: #### A DIFF, FOL, TSH, LIPID, ANEU, B12, FT3, CMP, CBC, GFR, FT4 #### [place] [id number] Albumin/Globulin [Mass ratio] 2.0 {ratio} High 0.9-1.6 [facility] ([place]) Comment on above: Performed By: #### A DIFF, FOL, TSH, LIPID, ANEU, B12, FT3, CMP, CBC, GFR, FT4 #### [place] [id number] ALP [Catalytic activity/Vol] 62 U/L Normal 38-126 [facility] ([place]) Comment on above: Performed By: #### A DIFF, FOL, TSH, LIPID, ANEU, B12, FT3, CMP, CBC, GFR, FT4 #### [place] [id number] ALT [Catalytic activity/Vol] 35 U/L Normal 12-55 [facility] ([place]) Comment on above: Performed By: #### A DIFF, FOL, TSH, LIPID, ANEU, B12, FT3, CMP, CBC, GFR, FT4 #### [place] [id number] AST [Catalytic activity/Vol] 23 U/L Normal 8-34 [facility] ([place]) Comment on above: Performed By: #### A DIFF, FOL, TSH, LIPID, ANEU, B12, FT3, CMP, CBC, GFR, FT4 #### [place] [id number] Bili Total 0.50 mg/dL Normal 0.20-1.20 [facility] ([place]) Comment on above: Result Comment: Use of this assay is not recommended for patients undergoing treatment with eltrombopag due to the potential for falsely elevated results. Performed By: #### A DIFF, FOL, TSH, LIPID, ANEU, B12, FT3, CMP, CBC, GFR, FT4 #### [place] [id number] BUN/Creatinine Ratio 22.8 ratio High 10.0-22.0 [facility] ([place]) Comment on above: Performed By: #### A DIFF, FOL, TSH, LIPID, ANEU, B12, FT3, CMP, CBC, GFR, FT4 #### [address] [address] Calcium [Mass/Vol] 9.8 mg/dL Normal 8.7-10.4 [facility] ([place]) Comment on above: Performed By: #### A DIFF, FOL, TSH, LIPID, ANEU, B12, FT3, CMP, CBC, GFR, FT4 #### [place] [id number] Chloride [Moles/Vol] 107 mmol/L Normal 98-110 [facility] ([place]) Comment on above: Performed By: #### A DIFF, FOL, TSH, LIPID, ANEU, B12, FT3, CMP, CBC, GFR, FT4 #### [place] [id number] CO2 [Moles/Vol] 24 mmol/L Normal 22-32 [facility] ([place]) Comment on above: Performed By: #### A DIFF, FOL, TSH, LIPID, ANEU, B12, FT3, CMP, CBC, GFR, FT4 #### [place] [id number] Creatinine [Mass/Vol] 0.79 mg/dL Normal 0.60-1.40 [facility] ([place]) Comment on above: Performed By: #### A DIFF, FOL, TSH, LIPID, ANEU, B12, FT3, CMP, CBC, GFR, FT4 #### [place] [address] Electrolyte Balance 11.0 mEq/L Normal 4.0-15.0 [facility] ([place]) Comment on above: Performed By: #### A DIFF, FOL, TSH, LIPID, ANEU, B12, FT3, CMP, CBC, GFR, FT4 #### [place] [id number] Globulin 2.3 G/dL Normal 1.5-3.8 [facility] ([place]) Comment on above: Performed By: #### A DIFF, FOL, TSH, LIPID, ANEU, B12, FT3, CMP, CBC, GFR, FT4 #### [address] [address] Glucose [Mass/Vol] 92 mg/dL Normal 82-115 [facility] ([place]) Comment on above: Performed By: #### A DIFF, FOL, TSH, LIPID, ANEU, B12, FT3, CMP, CBC, GFR, FT4 #### [address] [address] Potassium [Moles/Vol] 5.0 mmol/L Normal 3.5-5.0 [facility] ([place]) Comment on above: Performed By: #### A DIFF, FOL, TSH, LIPID, ANEU, B12, FT3, CMP, CBC, GFR, FT4 #### [place] [id number] Sodium [Moles/Vol] 142 mmol/L Normal 136-145 [facility] ([place]) Comment on above: Performed By: #### A DIFF, FOL, TSH, LIPID, ANEU, B12, FT3, CMP, CBC, GFR, FT4 #### [place] [id number] Total Protein 6.8 G/dL Normal 5.7-8.2 [facility] ([place]) Comment on above: Result Comment: No te - New Reference Range in effect 20 Performed By: #### A DIFF, FOL, TSH, LIPID, ANEU, B12, FT3, CMP, CBC, GFR, FT4 #### [place] [id number] Urea nitrogen [Mass/Vol] 18.0 mg/dL Normal 8.0-22.0 [facility] ([place]) Comment on above: Performed By: #### A DIFF, FOL, TSH, LIPID, ANEU, B12, FT3, CMP, CBC, GFR, FT4 #### [address] [address] CCP IgG Antibodieson 024 CCP IgG Ab. 0 units Normal 0-19 [facility] Comment on above: Result Comment: Nega tive <20 Weak positive 20 - 39 Moderate positive 40 - 59 Strong positive >59 Performed at: CB - [facility] [address] [place], [place] [id number] Body Make Up Artist: Sumeet Pat PhD, Phone: [phone] Performed at: [address] [place], [place] [address] [place], [place] [id number] Body Make Up Artist: Melanie Taveras PhD, Phone: [phone] Performed By: #### L 3890.6100, L3400.8000, L501.6710, L3410.1400, L3890.6200, L505.7010, L101.9900, L3890.6300, L500.4050, L100.0100, L3100.5475, L4600.0100 #### [facility] [address] [place], [place], [address] HLA B27on 11-19-2023 HLA B27 Positive Normal . [facility] Comment on above: Result Comment: HLA- B*27 Positive This patient is positive for an HLA-B*27 allele that is associated with spondyloarthropathies. This procedure rules out the B*27:06 and 27:09 alleles, which the literature suggests are not associated with spondyloarthropathies. There are several very rare HLA allele that are not ruled out by this assay that may result in a false positive. Clinical correlation is recommended. B27 allele interpretation for all loci based on IMGT/HLA database version 3.51.0 This test was developed and its performance characteristics determined by [facility]. It has not been cleared or approved by the Food and Drug Administration. [facility] CLIA ID Number [id number] THis test was performed using Polymerase Chain Reaction (PCR) and Sequence Specific Oligonucleotide Probes (SSOP) technique. Sequence Based Typing (SBT) may be used as a supplemental method when necessary. If you have questions, please call [facility] customer service at or email at [email or web address]. Performed By: #### L 3890.6100, L3400.8000, L501.6710, L3410.1400, L3890.6200, L505.7010, L101.9900, L3890.6300, L500.4050, L100.0100, L3100.5475, L4600.0100 #### [facility] [address] [place], [address] Quantiferon TB-Gold+on 11-18 QFT MITOGEN MAGDI > 10.00 Normal . [facility] Comment on above: Performed By: #### L 3890.6100, L3400.8000, L501.6710, L3410.1400, L3890.6200, L505.7010, L101.9900, L3890.6300, L500.4050, L100.0100, L3100.5475, L4600.0100 #### [facility] [address] [place], [address] QFT NIL VALUE 0.13 IU/mL Normal . [facility] Comment on above: Performed By: #### L 3890.6100, L3400.8000, L501.6710, L3410.1400, L3890.6200, L505.7010, L101.9900, L3890.6300, L500.4050, L100.0100, L3100.5475, L4600.0100 #### [facility] [address] [place], [address] QFT TB GOLD+ Comment Normal . [facility] Comment on above: Result Comment: Jose tiFERON-TB Gold Plus is a qualitative indirect test for M tuberculosis infection (including disease) and is intended for use in conjunction with risk assessment, radiography, and other medical and diagnostic evaluations. The QuantiFERON-TB Gold Plus result is determined by subtracting the Nil value from either TB antigen (Ag) value. The Mitogen tube serves as a control for the test. Performed By: #### L 3890.6100, L3400.8000, L501.6710, L3410.1400, L3890.6200, L505.7010, L101.9900, L3890.6300, L500.4050, L100.0100, L3100.5475, L4600.0100 #### [facility] [address] [place], [address] QFT TB POS CRIT Negative Normal Negative [facility] Comment on above: Result Comment: No r esponse to M tuberculosis antigens detected. Infection with M tuberculosis is unlikely, but high risk individuals should be considered for additional testing (ATS/IDSA/CDC Clinical Practice Guidelines, 2017). The reference range is an Antigen minus Nil result of <0.35 IU/mL. The specimen received for QuantiFERON testing was incubated by the ordering institution. Specific procedures outlined in our Directory of Services and in the package insert for the QuantiFERON Gold (In Tube) test must be followed to enable for proper stimulation of cells for the production of interferon gamma. Chemiluminescence immunoassay methodology Performed By: #### L 3890.6100, L3400.8000, L501.6710, L3410.1400, L3890.6200, L505.7010, L101.9900, L3890.6300, L500.4050, L100.0100, L3100.5475, L4600.0100 #### [facility] [address], [address] QFT TB1+ AG MAGDI 0.16 IU/mL Normal . [facility] Comment on above: Performed By: #### L 3890.6100, L3400.8000, L501.6710, L3410.1400, L3890.6200, L505.7010, L101.9900, L3890.6300, L500.4050, L100.0100, L3100.5475, L4600.0100 #### [facility] [address] [place], [address] QFT TB2+ AG MAGDI 0.12 IU/mL Normal . [facility] Comment on above: Performed By: #### L 3890.6100, L3400.8000, L501.6710, L3410.1400, L3890.6200, L505.7010, L101.9900, L3890.6300, L500.4050, L100.0100, L3100.5475, L4600.0100 #### [facility] [address] [place], [place], [id number] ANTINUCLEAR ANTIBODIES DIREC Ton 11-15-2023 ROSANGELA,DIRECT Negative Normal Negative [facility] Comment on above: Result Comment: Perf ormed at: [facility] [id number] Body Make Up Artist: Sumeet Pat PhD, Phone: [phone] Performed By: #### L 3890.6100, L3400.8000, L501.6710, L3410.1400, L3890.6200, L505.7010, L101.9900, L3890.6300, L500.4050, L100.0100, L3100.5475, L4600.0100 #### [facility] [address] [place], [place], [id number] Absolute lymphocyte countOrd ered By: Estephania Mendoza on 11-12-2023 Lymphocytes Auto (Unsp spec) [#/Vol] 1.30 10*3/uL 0.83-4.51 [facility] Automated lymphocyte count a s percentage of total leukocytesOrdered By: Estephania Mendoza on 11-12-2023 Lymphocytes/100 WBC Auto (Unsp spec) 30.8 % 19-41 [facility] Basophil percentageOrdered B y: Estephania Mendoza on 11-12-2023 Basophil percentage < 10.0 IU/mL <15 [facility] Basophils/100 WBC (Bld) 1.7 % 0-1 [facility] Bilirubin [Mass/Vol] 0.60 mg/dL 0.20-1.00 [facility] Comment on above: For patients on eltr ombopag therapy, use of Dimension [place] TBIL is not recommended. Chloride [Moles/Vol] 98 mmol/L 98-107 [facility] Eosinophils/100 WBC (Bld) 1.2 % 0-5 [facility] Glucose [Mass/Vol] 93 mg/dL 74-106 [facility] Hemoglobin (Bld) [Mass/Vol] 15.7 g/dL 13.0-16.5 [facility] Monocytes/100 WBC (Bld) 23.0 % 0-10 [facility] Neutrophils (Bld) [#/Vol] 1.8 10*3/uL 2.0-7.7 [facility] Neutrophils/100 WBC (Bld) 42.4 % 47-70 [facility] Potassium [Moles/Vol] 3.7 mmol/L 3.5-5.1 [facility] Protein [Mass/Vol] 7.5 g/dL 6.4-8.2 [facility] Sodium [Moles/Vol] 133 mmol/L 136-145 [facility] WBC (Bld) [#/Vol] 4.2 10*3/uL 4.4-11.0 [facility] CBC W/Diff, Automatedon 04-0 -2023 Absolute Lymph 1.30 X10 3/uL Normal 0.83-4.51 [facility] Comment on above: Performed By: #### L 3890.6100, L3400.8000, L501.6710, L3410.1400, L3890.6200, L505.7010, L101.9900, L3890.6300, L500.4050, L100.0100, L3100.5475, L4600.0100 #### [facility] [address] [place], [address] Absolute Neut 1.8 X10 3/uL Low 2.0-7.7 [facility] Comment on above: Performed By: #### L 3890.6100, L3400.8000, L501.6710, L3410.1400, L3890.6200, L505.7010, L101.9900, L3890.6300, L500.4050, L100.0100, L3100.5475, L4600.0100 #### [facility] [address] [place], [address] Basophils/100 WBC (Bld) 1.7 % High 0-1 [facility] Comment on above: Performed By: #### L 3890.6100, L3400.8000, L501.6710, L3410.1400, L3890.6200, L505.7010, L101.9900, L3890.6300, L500.4050, L100.0100, L3100.5475, L4600.0100 #### [facility] [address] [place], [place], [id number] (687) Eosinophils/100 WBC (Bld) 1.2 % Normal 0-5 [facility] Comment on above: Performed By: #### L 3890.6100, L3400.8000, L501.6710, L3410.1400, L3890.6200, L505.7010, L101.9900, L3890.6300, L500.4050, L100.0100, L3100.5475, L4600.0100 #### [facility] [address] [place], [place], [id number] (555) Erythrocyte distribution width (RBC) [Ratio] 13.2 % Normal 11.6-14.6 [facility] Comment on above: Performed By: #### L 3890.6100, L3400.8000, L501.6710, L3410.1400, L3890.6200, L505.7010, L101.9900, L3890.6300, L500.4050, L100.0100, L3100.5475, L4600.0100 #### [facility] [address] [place], [place], [id number] (313) Hematocrit (Bld) [Volume fraction] 47.6 % Normal 40-54 [facility] Comment on above: Performed By: #### L 3890.6100, L3400.8000, L501.6710, L3410.1400, L3890.6200, L505.7010, L101.9900, L3890.6300, L500.4050, L100.0100, L3100.5475, L4600.0100 #### [facility] [address] [place], [address] Hemoglobin (Bld) [Mass/Vol] 15.7 g/dL Normal 13.0-16.5 [facility] Comment on above: Performed By: #### L 3890.6100, L3400.8000, L501.6710, L3410.1400, L3890.6200, L505.7010, L101.9900, L3890.6300, L500.4050, L100.0100, L3100.5475, L4600.0100 #### [facility] [address] [place], [address] (079 IG% 0.900 Normal 0.0-0.9 [facility] Comment on above: Result Comment: IG% - Immature Granulocytes (promyelocytes, myelocytes and metamyelocytes) > 1% indicates that a LEFT SHIFT is Present. Performed By: #### L 3890.6100, L3400.8000, L501.6710, L3410.1400, L3890.6200, L505.7010, L101.9900, L3890.6300, L500.4050, L100.0100, L3100.5475, L4600.0100 #### [facility] [address] [place], [address] Lymphocytes/100 WBC (Bld) 30.8 % Normal 19-41 [facility] Comment on above: Performed By: #### L 3890.6100, L3400.8000, L501.6710, L3410.1400, L3890.6200, L505.7010, L101.9900, L3890.6300, L500.4050, L100.0100, L3100.5475, L4600.0100 #### [facility] [address] [place], [address] MCH (RBC) [Entitic mass] 32.0 pg Normal 27.0-32.0 [facility] Comment on above: Performed By: #### L 3890.6100, L3400.8000, L501.6710, L3410.1400, L3890.6200, L505.7010, L101.9900, L3890.6300, L500.4050, L100.0100, L3100.5475, L4600.0100 #### [facility] [address] [place], [address] MCHC (RBC) [Mass/Vol] 33.0 g/dL Normal 32-36 [facility] Comment on above: Performed By: #### L 3890.6100, L3400.8000, L501.6710, L3410.1400, L3890.6200, L505.7010, L101.9900, L3890.6300, L500.4050, L100.0100, L3100.5475, L4600.0100 #### [facility] [address] [place], [address] MCV (RBC) [Entitic vol] 97.1 fL High 80-94 [facility] Comment on above: Performed By: #### L 3890.6100, L3400.8000, L501.6710, L3410.1400, L3890.6200, L505.7010, L101.9900, L3890.6300, L500.4050, L100.0100, L3100.5475, L4600.0100 #### [facility] [address] [place], [address] Monocytes/100 WBC (Bld) 23.0 % High 0-10 [facility] Comment on above: Performed By: #### L 3890.6100, L3400.8000, L501.6710, L3410.1400, L3890.6200, L505.7010, L101.9900, L3890.6300, L500.4050, L100.0100, L3100.5475, L4600.0100 #### [facility] [address] [place], [address] Neutrophils/100 WBC (Bld) 42.4 % Low 47-70 [facility] Comment on above: Performed By: #### L 3890.6100, L3400.8000, L501.6710, L3410.1400, L3890.6200, L505.7010, L101.9900, L3890.6300, L500.4050, L100.0100, L3100.5475, L4600.0100 #### [facility] [address] [place], [address] Nucleated RBC (Bld) [#/Vol] 0 10*3/uL Normal 0-5 [facility] Comment on above: Performed By: #### L 3890.6100, L3400.8000, L501.6710, L3410.1400, L3890.6200, L505.7010, L101.9900, L3890.6300, L500.4050, L100.0100, L3100.5475, L4600.0100 #### [facility] [address] [place], [address] Platelet mean volume (Bld) [Entitic vol] 10.5 fL Normal 6.2-12.0 [facility] Comment on above: Performed By: #### L 3890.6100, L3400.8000, L501.6710, L3410.1400, L3890.6200, L505.7010, L101.9900, L3890.6300, L500.4050, L100.0100, L3100.5475, L4600.0100 #### [facility] [address] [place], [address] Platelets (Bld) [#/Vol] 254 10*3/uL Normal 150-450 [facility] Comment on above: Performed By: #### L 3890.6100, L3400.8000, L501.6710, L3410.1400, L3890.6200, L505.7010, L101.9900, L3890.6300, L500.4050, L100.0100, L3100.5475, L4600.0100 #### [facility] [address] [place], [address] RBC (Bld) [#/Vol] 4.90 10*6/uL Normal 4.6-6.2 [facility] Comment on above: Performed By: #### L 3890.6100, L3400.8000, L501.6710, L3410.1400, L3890.6200, L505.7010, L101.9900, L3890.6300, L500.4050, L100.0100, L3100.5475, L4600.0100 #### [facility] [address] [place], [address] RDW SD 47.0 fl High 35.1-43.9 [facility] Comment on above: Performed By: #### L 3890.6100, L3400.8000, L501.6710, L3410.1400, L3890.6200, L505.7010, L101.9900, L3890.6300, L500.4050, L100.0100, L3100.5475, L4600.0100 #### [facility] [address] [place], [address] WBC (Bld) [#/Vol] 4.2 10*3/uL Low 4.4-11.0 [facility] Comment on above: Performed By: #### L 3890.6100, L3400.8000, L501.6710, L3410.1400, L3890.6200, L505.7010, L101.9900, L3890.6300, L500.4050, L100.0100, L3100.5475, L4600.0100 #### [facility] [address] [place], [address] CRPon 11-12-2023 C-REACTIVE PROT 30.70 mg/L High 0.0-3.0 [facility] Comment on above: Result Comment: C-Re active Protein (CRP) provides useful information for the diagnosis, therapy and monitoring of inflammatory processes and associated diseases. For the evaluation of Relative Risk for Cardiovascular Disease, a High Sensitivity CRP (HSCRP) should be ordered. Performed By: #### L 3890.6100, L3400.8000, L501.6710, L3410.1400, L3890.6200, L505.7010, L101.9900, L3890.6300, L500.4050, L100.0100, L3100.5475, L4600.0100 #### [facility] [address] [place], [place], [id number] Comprehensive Metabolic Prof ilon 11-12-2023 Albumin [Mass/Vol] 3.8 g/dL Normal 3.2-5.0 [facility] Comment on above: Performed By: #### L 3890.6100, L3400.8000, L501.6710, L3410.1400, L3890.6200, L505.7010, L101.9900, L3890.6300, L500.4050, L100.0100, L3100.5475, L4600.0100 #### [facility] [address] [place], [place], [id number] Albumin/Globulin [Mass ratio] 1.0 {ratio} Normal 0.9-2.4 [facility] Comment on above: Performed By: #### L 3890.6100, L3400.8000, L501.6710, L3410.1400, L3890.6200, L505.7010, L101.9900, L3890.6300, L500.4050, L100.0100, L3100.5475, L4600.0100 #### [facility] [address] [place], [place], [id number] ALK P 80 U/L Normal 45-117 [facility] Comment on above: Performed By: #### L 3890.6100, L3400.8000, L501.6710, L3410.1400, L3890.6200, L505.7010, L101.9900, L3890.6300, L500.4050, L100.0100, L3100.5475, L4600.0100 #### [facility] [address] [place], [place], [id number] ALT [Catalytic activity/Vol] 53 U/L Normal 16-61 [facility] Comment on above: Performed By: #### L 3890.6100, L3400.8000, L501.6710, L3410.1400, L3890.6200, L505.7010, L101.9900, L3890.6300, L500.4050, L100.0100, L3100.5475, L4600.0100 #### [facility] [address] [place], [place], [id number] AST [Catalytic activity/Vol] 41 U/L High 15-37 [facility] Comment on above: Performed By: #### L 3890.6100, L3400.8000, L501.6710, L3410.1400, L3890.6200, L505.7010, L101.9900, L3890.6300, L500.4050, L100.0100, L3100.5475, L4600.0100 #### [facility] [address] [place], [place], [id number] Bilirubin [Mass/Vol] 0.60 mg/dL Normal 0.20-1.00 [facility] Comment on above: Result Comment: For patients on eltrombopag therapy, use of Dimension [place] TBIL is not recommended. Performed By: #### L 3890.6100, L3400.8000, L501.6710, L3410.1400, L3890.6200, L505.7010, L101.9900, L3890.6300, L500.4050, L100.0100, L3100.5475, L4600.0100 #### [facility] [address] [place], [address] BUN/CRE 14.8 RATIO Normal 10-20 [facility] Comment on above: Performed By: #### L 3890.6100, L3400.8000, L501.6710, L3410.1400, L3890.6200, L505.7010, L101.9900, L3890.6300, L500.4050, L100.0100, L3100.5475, L4600.0100 #### [facility] [address] [place], [address] CA,Total 9.6 mg/dL Normal 8.5-10.1 [facility] Comment on above: Performed By: #### L 3890.6100, L3400.8000, L501.6710, L3410.1400, L3890.6200, L505.7010, L101.9900, L3890.6300, L500.4050, L100.0100, L3100.5475, L4600.0100 #### [facility] [address] [place], [place], [id number] ([phone]) Chloride [Moles/Vol] 98 mmol/L Normal 98-107 [facility] Comment on above: Performed By: #### L 3890.6100, L3400.8000, L501.6710, L3410.1400, L3890.6200, L505.7010, L101.9900, L3890.6300, L500.4050, L100.0100, L3100.5475, L4600.0100 #### [facility] [address] [place], [address] CO2 [Moles/Vol] 27.0 mmol/L Normal 21.0-32.0 [facility] Comment on above: Performed By: #### L 3890.6100, L3400.8000, L501.6710, L3410.1400, L3890.6200, L505.7010, L101.9900, L3890.6300, L500.4050, L100.0100, L3100.5475, L4600.0100 #### [facility] [address] [place], [address] Creatinine [Mass/Vol] 0.94 mg/dL Normal 0.70-1.30 [facility] Comment on above: Result Comment: The validity of the calculated GFR GFRAA in patients over 70 years has not been determined. Clinical correlation is essential. Performed By: #### L 3890.6100, L3400.8000, L501.6710, L3410.1400, L3890.6200, L505.7010, L101.9900, L3890.6300, L500.4050, L100.0100, L3100.5475, L4600.0100 #### [facility] [address] [place], [address] EST GFR - AA 104 mL/min Normal >60 [facility] Comment on above: Result Comment: Afri can [place] GFR Calc Performed By: #### L 3890.6100, L3400.8000, L501.6710, L3410.1400, L3890.6200, L505.7010, L101.9900, L3890.6300, L500.4050, L100.0100, L3100.5475, L4600.0100 #### [facility] [address] [place], [address] GAP 8 Normal 5-15 [facility] Comment on above: Performed By: #### L 3890.6100, L3400.8000, L501.6710, L3410.1400, L3890.6200, L505.7010, L101.9900, L3890.6300, L500.4050, L100.0100, L3100.5475, L4600.0100 #### [facility] [address] [place], [address] GFR/1.73 sq M.predicted among non-blacks MDRD (S/P/Bld) [Vol rate/Area] 86 mL/min/{1.73_m2} Normal >60 [facility] Comment on above: Result Comment: Non- GFR Calc Performed By: #### L 3890.6100, L3400.8000, L501.6710, L3410.1400, L3890.6200, L505.7010, L101.9900, L3890.6300, L500.4050, L100.0100, L3100.5475, L4600.0100 #### [facility] [address] [place], [place], [id number] (126) Globulin (S) [Mass/Vol] 3.7 g/dL Normal 2.2-4.2 [facility] Comment on above: Performed By: #### L 3890.6100, L3400.8000, L501.6710, L3410.1400, L3890.6200, L505.7010, L101.9900, L3890.6300, L500.4050, L100.0100, L3100.5475, L4600.0100 #### [facility] [address] [place], [place], [id number] (327) Glucose [Mass/Vol] 93 mg/dL Normal 74-106 [facility] Comment on above: Performed By: #### L 3890.6100, L3400.8000, L501.6710, L3410.1400, L3890.6200, L505.7010, L101.9900, L3890.6300, L500.4050, L100.0100, L3100.5475, L4600.0100 #### [facility] [address] [place], [place], [id number] (164) Potassium [Moles/Vol] 3.7 mmol/L Normal 3.5-5.1 [facility] Comment on above: Performed By: #### L 3890.6100, L3400.8000, L501.6710, L3410.1400, L3890.6200, L505.7010, L101.9900, L3890.6300, L500.4050, L100.0100, L3100.5475, L4600.0100 #### [facility] [address] [place], [address] Sodium [Moles/Vol] 133 mmol/L Low 136-145 [facility] Comment on above: Performed By: #### L 3890.6100, L3400.8000, L501.6710, L3410.1400, L3890.6200, L505.7010, L101.9900, L3890.6300, L500.4050, L100.0100, L3100.5475, L4600.0100 #### [facility] [address] [place], [address] T PROT 7.5 g/dL Normal 6.4-8.2 [facility] Comment on above: Performed By: #### L 3890.6100, L3400.8000, L501.6710, L3410.1400, L3890.6200, L505.7010, L101.9900, L3890.6300, L500.4050, L100.0100, L3100.5475, L4600.0100 #### [facility] [address] [place], [address] Urea nitrogen [Mass/Vol] 14 mg/dL Normal 7-18 [facility] Comment on above: Performed By: #### L 3890.6100, L3400.8000, L501.6710, L3410.1400, L3890.6200, L505.7010, L101.9900, L3890.6300, L500.4050, L100.0100, L3100.5475, L4600.0100 #### [facility] [address] [place], [address] Determination of erythrocyte mean corpuscular volume (MCV)Ordered By: Estephania Mendoza on 11-12-2023 MCV (RBC) [Entitic vol] 97.1 fL 80-94 [facility] Erythrocyte Sed Rateon 11-11 SED RATE 4 mm/hr Normal 0-20 [facility] Comment on above: Performed By: #### L 3890.6100, L3400.8000, L501.6710, L3410.1400, L3890.6200, L505.7010, L101.9900, L3890.6300, L500.4050, L100.0100, L3100.5475, L4600.0100 #### [facility] [address] [place], [address] Erythrocyte distribution wid th ratioOrdered By: Estephania Mendoza on 11-12-2023 Erythrocyte distribution width (RBC) [Ratio] 13.2 % 11.6-14.6 [facility] Erythrocyte distribution wid th standard deviationOrdered By: Estephania Mendoza on 11-12-2023 Erythrocyte distribution width (RBC) [Entitic vol] 47.0 fL 35.1-43.9 [facility] Erythrocyte sedimentation ra teOrdered By: Estephania Mendoza on 11-12-2023 ESR (Bld) [Velocity] 4 mm/h 0-20 [facility] Hematocrit Auto (Bld) [Volum e fraction]Ordered By: [facility] on 11-12-2023 Hematocrit (Bld) [Volume fraction] 47.6 % 40-54 [facility] Hepatitis B Surface Antibody on 11-12-2023 HEP B Surf Ab Non-Reactive Normal [facility] Comment on above: Result Comment: Non Reactive: Inconsistent with immunity less than <10 mIU/mL Reactive: Consistent with immunity greater than or equal to 10 mIU/mL Performed By: #### L 3890.6100, L3400.8000, L501.6710, L3410.1400, L3890.6200, L505.7010, L101.9900, L3890.6300, L500.4050, L100.0100, L3100.5475, L4600.0100 #### [facility] [address] [place], [place], [id number] Hepatitis B Surface Antigeno n 11-12-2023 HEP B Surf Ag Non-Reactive Normal Nonreactive [facility] Comment on above: Performed By: #### L 3890.6100, L3400.8000, L501.6710, L3410.1400, L3890.6200, L505.7010, L101.9900, L3890.6300, L500.4050, L100.0100, L3100.5475, L4600.0100 #### [facility] [address] [place], [address] Hepatitis C Antibodyon 11-11 Hepatitis C AB Non-Reactive Normal Nonreactive [facility] Comment on above: Result Comment: Non Reactive: < 0.8 Equivocal: >/= 0.8 to < 1.0 Reactive: >/= 1.0 The CDC requires that a reactive/equivocal HCV antibody result be sent out for confirmation. HCV Quant by PCR testing. Performed By: #### L 3890.6100, L3400.8000, L501.6710, L3410.1400, L3890.6200, L505.7010, L101.9900, L3890.6300, L500.4050, L100.0100, L3100.5475, L4600.0100 #### [facility] [address] [place], [address] Immature granulocytes/100 WB C Auto (Bld)Ordered By: Estephania Mendoza on 11-12-2023 Immature granulocytes/100 WBC (Bld) 0.900 % 0.0-0.9 [facility] Comment on above: IG% - Immature Granu locytes (promyelocytes, myelocytes and metamyelocytes) > 1% indicates that a LEFT SHIFT is Present. Laboratory - Chemistry and C hemistry - challengeOrdered By: Estephania Mendoza on 11-12-2023 Albumin/Globulin [Mass ratio] 1.0 {ratio} 0.9-2.4 [facility] ALP [Catalytic activity/Vol] 80 U/L 45-117 [facility] ALT [Catalytic activity/Vol] 53 U/L 16-61 [facility] CO2 [Moles/Vol] 27.0 mmol/L 21.0-32.0 [facility] Globulin (S) [Mass/Vol] 3.7 g/dL 2.2-4.2 [facility] Urea nitrogen/Creatinine [Mass ratio] 14.8 mg/mg 10-20 [facility] - Hematology and Cell countsOrdered By: Estephania Mendoza on 11-12-2023 MCH (RBC) [Entitic mass] 32.0 pg 27.0-32.0 [facility] MCHC (RBC) [Mass/Vol] 33.0 g/dL 32-36 [facility] Nucleated RBC/100 WBC (Bld) [Ratio] 0 % 0-5 [facility] Platelet mean volume (Bld) [Entitic vol] 10.5 fL 6.2-12.0 [facility] Platelets (Bld) [#/Vol] 254 10*3/uL 150-450 [facility] No Panel InformationOrdered By: Estephania Mendoza on 11-12-2023 Anti-Nuclear Antibody Screen Negative Negative [facility] Comment on above: Performed at: [facility] [address] Director: Sumeet Pat PhD, Phone: [phone] C-Reactive Protein Extended Range 30.70 mg/L 0.0-3.0 [facility] Comment on above: C-Reactive Protein ( CRP) provides useful information for thediagnosis, therapy and monitoring of inflammatory processesand associated diseases. For the evaluation of Relative Riskfor Cardiovascular Disease, a High Sensitivity CRP (HSCRP)should be ordered. Estimated GFR (MDRD) Amer 104 mL/min >60 [facility] Comment on above: GFR Calc Estimated GFR (MDRD) Non-Af Amer 86 mL/min >60 [facility] Comment on above: Non- GFR Calc Hepatitis B Surface Antigen Non-Reactive Nonreactive [facility] Hepatitis C Antibody Non-Reactive Nonreactive [facility] Comment on above: Non Reactive: < 0.8 Equivocal: >/= 0.8 to < 1.0 Reactive: >/= 1.0The CDC requires that a reactive/equivocal HCV antibody result be sent out for confirmation. HCV Quant by PCR testing. Pelvis 1 or 2 Viewson 2023 Pelvis 1 or 2 Views [facility] Services [address] [place] [address] Pelvis 1 or 2 Views MR#: [id number] Acct: [id number] Name: KYRIE CORCORAN Rep #: [id number] : 1960 M 63 From: Angelo Reese PCP: INNA PARSONS Status: REG CLI Study: Pelvis 1 or 2 Views Date of Exam: 11/12/23 Exam# [id number] Ordering Dr: Estephania Mendoza MD [id number] EXAM: XR PELVIS, 1 OR 2 VIEWS CLINICAL INDICATION: PAIN TECHNIQUE: Frontal view of the pelvis. COMPARISON: No relevant prior studies available. FINDINGS: BONES/JOINTS: Degenerative findings in the lumbar spine. No displaced fracture. No destructive or sclerotic lesions. Note that overlapping bowel shadows may however obscure fine detail. Sacroiliac joints are unremarkable. No widening of the pubic symphysis. SOFT TISSUES: Unremarkable. No soft tissue swelling or gas. VASCULATURE: Calcified phleboliths in the pelvis. RAD/Pelvis 1 or 2 Views IMPRESSION: No acute findings in the pelvis. Electronically Signed: Angelo Mo MD at 15:04 EDT Reading Location ID and State: [facility] / [place] , Service support , CC: Dr. Estephania Mendoza MD; INNA PARSONS Tax Associate: Signed Normal [facility] RBC Auto (Bld) [#/Vol]Ordere d By: Estephania Mendoza on 11-12-2023 RBC (Bld) [#/Vol] 4.90 10*6/uL 4.6-6.2 [facility] Rheumatoid Factoron 11-12-19 24 RHEUMATOID FAC < 10.0 Normal <15 [facility] Comment on above: Performed By: #### L 3890.6100, L3400.8000, L501.6710, L3410.1400, L3890.6200, L505.7010, L101.9900, L3890.6300, L500.4050, L100.0100, L3100.5475, L4600.0100 #### [facility] [address] [place], [address] Serum hepatitis B virus surf valentín antibody IgG detectionOrdered By: Estephania Mendoza on 11-12-2023 HBV surface IgG Ql (S) Non-Reactive [facility] Comment on above: Non Reactive: Incons istent with immunity less than <10 mIU/mL Reactive: Consistent with immunity greater than or equal to 10 mIU/mL Serum or plasma calcium мария urement (mass/volume)Ordered By: Estephania Mendoza on 11-12-2023 Calcium [Mass/Vol] 9.6 mg/dL 8.5-10.1 [facility] Serum or plasma creatinine m easurement (mass/volume)Ordered By: Estephania Mendoza on 11-12-2023 Creatinine [Mass/Vol] 0.94 mg/dL 0.70-1.30 [facility] Comment on above: The validity of the calculated GFR & GFRAA in patients over 70 years has not been determined. Clinical correlation is essential. Serum or plasma urea nitroge n measurement (mass/volume)Ordered By: Estephania Mendoza on 11-12-2023 Urea nitrogen [Mass/Vol] 14 mg/dL 7-18 [facility] Thin prep Papanicolaou smear with manual screeningOrdered By: Estephania Mendoza on 11-12-2023 Thin prep Papanicolaou smear with manual screening 3.8 g/dL 3.2-5.0 [facility] Thin prep Papanicolaou smear with manual screening 41 U/L 15-37 [facility] Thin prep Papanicolaou smear with manual screening 8 5-15 [facility] .Auto Diffon 07-08-2023 Basophil, Absolute 0.1 10 3/mcL Normal 0.0-0.3 [facility] ([place]) Comment on above: Performed By: #### A DIFF, FOL, TSH, LIPID, ANEU, B12, FT3, CMP, CBC, GFR, FT4 #### [address] [address] Basophils/100 WBC (Bld) 1.3 % Normal 0.0-2.5 [facility] ([place]) Comment on above: Performed By: #### A DIFF, FOL, TSH, LIPID, ANEU, B12, FT3, CMP, CBC, GFR, FT4 #### [address] [address] Eosinophil, Absolute 0.3 10 3/mcL Normal 0.0-0.7 [facility] ([place]) Comment on above: Performed By: #### A DIFF, FOL, TSH, LIPID, ANEU, B12, FT3, CMP, CBC, GFR, FT4 #### [address] [address] Eosinophils/100 WBC (Bld) 3.8 % Normal 0.0-6.0 [facility] ([place]) Comment on above: Performed By: #### A DIFF, FOL, TSH, LIPID, ANEU, B12, FT3, CMP, CBC, GFR, FT4 #### [address] [address] Lymphocyte, Absolute 1.8 10 3/mcL Normal 0.9-4.3 [facility] ([place]) Comment on above: Performed By: #### A DIFF, FOL, TSH, LIPID, ANEU, B12, FT3, CMP, CBC, GFR, FT4 #### [address] [address] Lymphocytes/100 WBC (Bld) 21.5 % Normal 20.0-40.0 [facility] ([place]) Comment on above: Performed By: #### A DIFF, FOL, TSH, LIPID, ANEU, B12, FT3, CMP, CBC, GFR, FT4 #### [address] [address] Monocyte, Absolute 0.8 10 3/mcL Normal 0.1-1.4 [facility] ([place]) Comment on above: Performed By: #### A DIFF, FOL, TSH, LIPID, ANEU, B12, FT3, CMP, CBC, GFR, FT4 #### [address] [address] Monocytes/100 WBC (Bld) 9.4 % Normal 2.0-13.0 [facility] ([place]) Comment on above: Performed By: #### A DIFF, FOL, TSH, LIPID, ANEU, B12, FT3, CMP, CBC, GFR, FT4 #### [address] [address] Neutrophils/100 WBC (Bld) 64.0 % Normal 50.0-75.0 [facility] ([place]) Comment on above: Performed By: #### A DIFF, FOL, TSH, LIPID, ANEU, B12, FT3, CMP, CBC, GFR, FT4 #### [address] [address] .GFRon 07-08-2023 GFR >60 Normal [facility] ([place]) Comment on above: Result Comment: GFR Population mean for , Non- Americans Ages 20-29 = 116 mL/min/1.73 sq.m. Ages 30-39 = 107 mL/min/1.73 sq.m. Ages 40-49 = 99 mL/min/1.73 sq.m. Ages 50-59 = 93 mL/min/1.73 sq.m. Ages 60-69 = 85 mL/min/1.73 sq.m. Ages 70+ = 75 mL/min/1.73 sq.m. Chronic Kidney Disease: Less than 60 mL/min/1.73 square meters End Stage Renal Disease: Less than 15 mL/min/1.73 square meters Performed By: #### A DIFF, FOL, TSH, LIPID, ANEU, B12, FT3, CMP, CBC, GFR, FT4 #### [address] [address] GFR Non- >60 Normal [facility] ([place]) Comment on above: Result Comment: GFR Population mean for , Non- Americans Ages 20-29 = 116 mL/min/1.73 sq.m. Ages 30-39 = 107 mL/min/1.73 sq.m. Ages 40-49 = 99 mL/min/1.73 sq.m. Ages 50-59 = 93 mL/min/1.73 sq.m. Ages 60-69 = 85 mL/min/1.73 sq.m. Ages 70+ = 75 mL/min/1.73 sq.m. Chronic Kidney Disease: Less than 60 mL/min/1.73 square meters End Stage Renal Disease: Less than 15 mL/min/1.73 square meters Performed By: #### A DIFF, FOL, TSH, LIPID, ANEU, B12, FT3, CMP, CBC, GFR, FT4 #### [address] [address] .NEUABSon 07-08-2023 Neutrophil, Absolute 5.4 10 3/mcL Normal 2.3-8.1 [facility] ([place]) Comment on above: Performed By: #### A DIFF, FOL, TSH, LIPID, ANEU, B12, FT3, CMP, CBC, GFR, FT4 #### [place] [id number] BMPon 07-08-2023 BUN/Creatinine Ratio 22.2 ratio High 10.0-22.0 [facility] ([place]) Comment on above: Performed By: #### A DIFF, FOL, TSH, LIPID, ANEU, B12, FT3, CMP, CBC, GFR, FT4 #### [place] [address] Calcium [Mass/Vol] 9.7 mg/dL Normal 8.7-10.4 [facility] ([place]) Comment on above: Performed By: #### A DIFF, FOL, TSH, LIPID, ANEU, B12, FT3, CMP, CBC, GFR, FT4 #### [address] [address] Chloride [Moles/Vol] 108 mmol/L Normal 98-110 [facility] ([place]) Comment on above: Performed By: #### A DIFF, FOL, TSH, LIPID, ANEU, B12, FT3, CMP, CBC, GFR, FT4 #### [address] [address] CO2 [Moles/Vol] 25 mmol/L Normal 22-32 [facility] ([place]) Comment on above: Performed By: #### A DIFF, FOL, TSH, LIPID, ANEU, B12, FT3, CMP, CBC, GFR, FT4 #### [address] [address] Creatinine [Mass/Vol] 0.81 mg/dL Normal 0.60-1.40 [facility] ([place]) Comment on above: Performed By: #### A DIFF, FOL, TSH, LIPID, ANEU, B12, FT3, CMP, CBC, GFR, FT4 #### [address] [address] Electrolyte Balance 7.0 mEq/L Normal 4.0-15.0 [facility] ([place]) Comment on above: Performed By: #### A DIFF, FOL, TSH, LIPID, ANEU, B12, FT3, CMP, CBC, GFR, FT4 #### [place] [id number] Glucose [Mass/Vol] 100 mg/dL Normal 82-115 [facility] ([place]) Comment on above: Performed By: #### A DIFF, FOL, TSH, LIPID, ANEU, B12, FT3, CMP, CBC, GFR, FT4 #### [place] [id number] Potassium [Moles/Vol] 5.0 mmol/L Normal 3.5-5.0 [facility] ([place]) Comment on above: Result Comment: Spec imen slightly hemolyzed. Performed By: #### A DIFF, FOL, TSH, LIPID, ANEU, B12, FT3, CMP, CBC, GFR, FT4 #### [address] [address] Sodium [Moles/Vol] 140 mmol/L Normal 136-145 [facility] ([place]) Comment on above: Performed By: #### A DIFF, FOL, TSH, LIPID, ANEU, B12, FT3, CMP, CBC, GFR, FT4 #### [address] [address] Urea nitrogen [Mass/Vol] 18.0 mg/dL Normal 8.0-22.0 [facility] ([place]) Comment on above: Performed By: #### A DIFF, FOL, TSH, LIPID, ANEU, B12, FT3, CMP, CBC, GFR, FT4 #### [address] [address] CBCon 07-08-2023 Erythrocyte distribution width (RBC) [Ratio] 13.0 % Normal 11.5-15.5 [facility] ([place]) Comment on above: Performed By: #### A DIFF, FOL, TSH, LIPID, ANEU, B12, FT3, CMP, CBC, GFR, FT4 #### [place] [address] Hematocrit (Bld) [Volume fraction] 44.8 % Normal 40.0-52.0 [facility] ([place]) Comment on above: Performed By: #### A DIFF, FOL, TSH, LIPID, ANEU, B12, FT3, CMP, CBC, GFR, FT4 #### [place] [address] Hgb 14.7 G/dL Normal 13.0-17.5 [facility] ([place]) Comment on above: Performed By: #### A DIFF, FOL, TSH, LIPID, ANEU, B12, FT3, CMP, CBC, GFR, FT4 #### [place] [address] MCH (RBC) [Entitic mass] 32.1 pg Normal 27.0-33.0 [facility] ([place]) Comment on above: Performed By: #### A DIFF, FOL, TSH, LIPID, ANEU, B12, FT3, CMP, CBC, GFR, FT4 #### [place] [id number] MCHC 32.9 G/dL Normal 32.0-36.0 [facility] ([place]) Comment on above: Performed By: #### A DIFF, FOL, TSH, LIPID, ANEU, B12, FT3, CMP, CBC, GFR, FT4 #### [place] [id number] MCV (RBC) [Entitic vol] 97.5 fL Normal 81.0-100.0 [facility] ([place]) Comment on above: Performed By: #### A DIFF, FOL, TSH, LIPID, ANEU, B12, FT3, CMP, CBC, GFR, FT4 #### [address] [address] Platelet 385 10 3/mcL Normal 150-450 [facility] ([place]) Comment on above: Performed By: #### A DIFF, FOL, TSH, LIPID, ANEU, B12, FT3, CMP, CBC, GFR, FT4 #### [address] [address] Platelet mean volume (Bld) [Entitic vol] 9.0 fL Normal 6.4-10.5 [facility] ([place]) Comment on above: Performed By: #### A DIFF, FOL, TSH, LIPID, ANEU, B12, FT3, CMP, CBC, GFR, FT4 #### [place] [address] RBC 4.60 10 6/mcL Normal 4.50-6.00 [facility] ([place]) Comment on above: Performed By: #### A DIFF, FOL, TSH, LIPID, ANEU, B12, FT3, CMP, CBC, GFR, FT4 #### [address] [address] WBC 8.4 10 3/mcL Normal 4.5-10.8 [facility] ([place]) Comment on above: Performed By: #### A DIFF, FOL, TSH, LIPID, ANEU, B12, FT3, CMP, CBC, GFR, FT4 #### [address] [address] PROon 07-08-2023 INR Coag (PPP) [Relative time] 0.9 {INR} Normal [facility] ([place]) Comment on above: Result Comment: The [place] (CHEST, 1992, 102:312S-25S) recommended therapeutic range for oral anticoagulant therapy is: LOW RISK: Prophylaxis of venous thrombosis INR: 2.0-3.0 Treatment of pulmonary embolism 2.0-3.0 Prevention of systemic embolism 2.0-3.0 HIGH RISK: Mechanical prosthetic valves 2.5-3.5 Performed By: #### A DIFF, FOL, TSH, LIPID, ANEU, B12, FT3, CMP, CBC, GFR, FT4 #### [facility] [address] [place] [address] PT Coag (PPP) [Time] 9.9 s Normal 9.0-14.2 [facility] ([place]) Comment on above: Result Comment: Effe ctive 02/21/08, Protime results may be affected by some antibiotics (i.e. Ciprofloxacin, Azithromycin, Bactrim) which may potentiate the action of oral anticoagulants, with further increases in Protime/INR. Performed By: #### A DIFF, FOL, TSH, LIPID, ANEU, B12, FT3, CMP, CBC, GFR, FT4 #### [facility] [address] [place] [address] CORONARY CALCIUM SCORING W/O CONTRASTon 06-24-2023 CT CORONARY CALCIUM SCORING W/O CONTRAST ORIGINAL EXAMINATION: CT OF THE HEART WITHOUT CONTRAST, CORONARY ARTERY CALCIUM SCREENING 06/21/2023 HISTORY: CT OF THE HEART WITHOUT CONTRAST, CORONARY ARTERY CALCIUM SCREENING COMPARISON: None TECHNIQUE: CT of the heart was obtained without intravenous contrast. Calcium scoring analysis was performed using a separate workstation. Dose modulation, iterative reconstruction, and/or weight based adjustment of the mA/kV was utilized to reduce the radiation dose to as low as reasonably achievable. FINDINGS: LEFT MAIN: Zero (0). LEFT ANTERIOR DESCENDING: Zero (0). CIRCUMFLEX: Zero (0). RIGHT CORONARY ARTERY: Zero (0). TOTAL AGATSTON CALCIUM SCORE: Zero (0). EXTRACARDIAC STRUCTURES: No evidence of mediastinal or hilar lymphadenopathy. No pericardial effusion. No cardiomegaly. Central pulmonary arteries are large in caliber. No evidence of acute process in the lungs. Scarring noted in the inferior segment of the lingula. No noncalcified nodules are noted in the lungs. Limited images of the upper abdomen are grossly unremarkable. Visualized osseous structures demonstrate age related degenerative changes without acute abnormality. Remodeled rib deformities noted bilaterally. IMPRESSION: Total Agatston calcium score of zero (0) implies a very low likelihood of a cardiac event over at least the next 3 years. Total calcium score of 0 is below the 25th percentile for the patient's age of 63 y/o . Prominent pulmonary arteries can be an indicator pulmonary arterial hypertension Calcium Score Interpretation 0 No identifiable atherosclerotic plaque. Very low cardiovascular disease risk. Less than 5% chance of presence of coronary artery disease. A negative examination. 1-10 Minimal plaque burden. Significant coronary artery disease very unlikely. 11-100 Mild plaque burden. Likely mild or minimal coronary stenosis. 101-400 Moderate plaque burden. Moderate non-obstructive coronary artery disease highly likely. Over 400 Extensive plaque burden. High likelihood of at least one significant coronary artery stenosis (>50% diameter). CALCIUM SCORING OVERVIEW: Coronary calcium is a marker for plaque in a blood vessel or atherosclerosis (hardening of the arteries). The presence and amount of calcium detected in the coronary artery by the CT scan estimates the presence and amount of atherosclerotic plaque. These calcium deposits can appear years before the development of heart disease symptoms such as chest pain and shortness of breath. A calcium score is computed for each of the coronary arteries based upon the volume and density of the calcium deposits. This can be referred to as your calcified plaque burden. It does not correspond directly to the percentage of narrowing in the artery, but does correlate with the severity of the overall coronary atherosclerotic burden. This score is then used to determine the calcium percentile which compares your calcified plaque burden to that of other asymptomatic men and women of the same age. The calcium score, in combination with the percentile, enables your physician to determine your risk of developing symptomatic coronary artery disease, and to measure the progression of disease as well as the effectiveness of treatment. A score of zero indicates that there is no calcified plaque burden. This implies that there is no significant coronary artery narrowing and very low likelihood of a cardiac event over at least the next 3 years. It does not absolutely rule out the presence of soft, noncalcified plaque or totally eliminate the possibility of a cardiac event. A score greater than zero indicates at least some coronary artery disease. As the score increases, so does the likelihood of a significant coronary narrowing and the likelihood of a coronary event over the next 3 years. Similarly, the likelihood of a coronary event increases with increasing calcium percentiles. Interpreted by: Parish Sofia MD Preliminary Report By: Parish Sofia MD Electronically signed By Parish Sofia MD Dictated Date: 06/24/2023 1:11:59 PM Prelim Date: 06/24/2023 1:14:07 PM Sign Date: 06/24/2023 1:14:07 PM Ordering Provider[facility] ([place]) .Auto Diffon 03-23-2023 Basophil, Absolute 0.1 10 3/mcL Normal 0.0-0.3 [facility] ([place]) Comment on above: Performed By: #### A DIFF, FOL, TSH, LIPID, ANEU, B12, FT3, CMP, CBC, GFR, FT4 #### [address] [address] Basophils/100 WBC (Bld) 1.3 % Normal 0.0-2.5 [facility] ([place]) Comment on above: Performed By: #### A DIFF, FOL, TSH, LIPID, ANEU, B12, FT3, CMP, CBC, GFR, FT4 #### [address] [address] Eosinophil, Absolute 0.2 10 3/mcL Normal 0.0-0.7 [facility] ([place]) Comment on above: Performed By: #### A DIFF, FOL, TSH, LIPID, ANEU, B12, FT3, CMP, CBC, GFR, FT4 #### [address] [address] Eosinophils/100 WBC (Bld) 2.0 % Normal 0.0-6.0 [facility] ([place]) Comment on above: Performed By: #### A DIFF, FOL, TSH, LIPID, ANEU, B12, FT3, CMP, CBC, GFR, FT4 #### [address] [address] Lymphocyte, Absolute 1.9 10 3/mcL Normal 0.9-4.3 [facility] [facility] Comment on above: Performed By: #### A DIFF, FOL, TSH, LIPID, ANEU, B12, FT3, CMP, CBC, GFR, FT4 #### [address] [address] Lymphocytes/100 WBC (Bld) 25.0 % Normal 20.0-40.0 [facility] ([place]) Comment on above: Performed By: #### A DIFF, FOL, TSH, LIPID, ANEU, B12, FT3, CMP, CBC, GFR, FT4 #### [address] [address] Monocyte, Absolute 0.7 10 3/mcL Normal 0.1-1.4 [facility] ([place]) Comment on above: Performed By: #### A DIFF, FOL, TSH, LIPID, ANEU, B12, FT3, CMP, CBC, GFR, FT4 #### [address] [address] Monocytes/100 WBC (Bld) 9.9 % Normal 2.0-13.0 [facility] [place] Comment on above: Performed By: #### A DIFF, FOL, TSH, LIPID, ANEU, B12, FT3, CMP, CBC, GFR, FT4 #### [address] [address] Neutrophils/100 WBC (Bld) 61.8 % Normal 50.0-75.0 [facility] [place] Comment on above: Performed By: #### A DIFF, FOL, TSH, LIPID, ANEU, B12, FT3, CMP, CBC, GFR, FT4 #### [address] [address] .GFRon 03-23-2023 GFR >60 Normal [facility] ([place]) Comment on above: Result Comment: GFR Population mean for , Non- Americans Ages 20-29 = 116 mL/min/1.73 sq.m. Ages 30-39 = 107 mL/min/1.73 sq.m. Ages 40-49 = 99 mL/min/1.73 sq.m. Ages 50-59 = 93 mL/min/1.73 sq.m. Ages 60-69 = 85 mL/min/1.73 sq.m. Ages 70+ = 75 mL/min/1.73 sq.m. Chronic Kidney Disease: Less than 60 mL/min/1.73 square meters End Stage Renal Disease: Less than 15 mL/min/1.73 square meters Performed By: #### A DIFF, FOL, TSH, LIPID, ANEU, B12, FT3, CMP, CBC, GFR, FT4 #### [address] [address] GFR Non- >60 Normal [facility] ([place] Comment on above: Result Comment: GFR Population mean for , Non- Americans Ages 20-29 = 116 mL/min/1.73 sq.m. Ages 30-39 = 107 mL/min/1.73 sq.m. Ages 40-49 = 99 mL/min/1.73 sq.m. Ages 50-59 = 93 mL/min/1.73 sq.m. Ages 60-69 = 85 mL/min/1.73 sq.m. Ages 70+ = 75 mL/min/1.73 sq.m. Chronic Kidney Disease: Less than 60 mL/min/1.73 square meters End Stage Renal Disease: Less than 15 mL/min/1.73 square meters Performed By: #### A DIFF, FOL, TSH, LIPID, ANEU, B12, FT3, CMP, CBC, GFR, FT4 #### [address] [address] .NEUABSon 03-23-2023 Neutrophil, Absolute 4.7 10 3/mcL Normal 2.3-8.1 [facility] ([place]) Comment on above: Performed By: #### A DIFF, FOL, TSH, LIPID, ANEU, B12, FT3, CMP, CBC, GFR, FT4 #### [place] [id number] B12on 03-23-2023 Cobalamin (Vitamin B12) [Mass/Vol] 217 pg/mL Normal 211-911 [facility] [place] Comment on above: Performed By: #### A DIFF, FOL, TSH, LIPID, ANEU, B12, FT3, CMP, CBC, GFR, FT4 #### [place] [id number] CBCon 03-23-2023 Erythrocyte distribution width (RBC) [Ratio] 13.8 % Normal 11.5-15.5 [facility] ([place] Comment on above: Performed By: #### A DIFF, FOL, TSH, LIPID, ANEU, B12, FT3, CMP, CBC, GFR, FT4 #### [place] [address] Hematocrit (Bld) [Volume fraction] 41.6 % Normal 40.0-52.0 [facility] [place] Comment on above: Performed By: #### A DIFF, FOL, TSH, LIPID, ANEU, B12, FT3, CMP, CBC, GFR, FT4 #### [place] [address] Hgb 13.8 G/dL Normal 13.0-17.5 [facility] ([place] Comment on above: Performed By: #### A DIFF, FOL, TSH, LIPID, ANEU, B12, FT3, CMP, CBC, GFR, FT4 #### [place] [id number] MCH (RBC) [Entitic mass] 33.3 pg High 27.0-33.0 [facility] ([place] Comment on above: Performed By: #### A DIFF, FOL, TSH, LIPID, ANEU, B12, FT3, CMP, CBC, GFR, FT4 #### [place] [address] MCHC 33.1 G/dL Normal 32.0-36.0 [facility] [place] Comment on above: Performed By: #### A DIFF, FOL, TSH, LIPID, ANEU, B12, FT3, CMP, CBC, GFR, FT4 #### [place] [address] MCV (RBC) [Entitic vol] 100.5 fL High 81.0-100.0 [facility] [place] Comment on above: Performed By: #### A DIFF, FOL, TSH, LIPID, ANEU, B12, FT3, CMP, CBC, GFR, FT4 #### [place] [address] Platelet 281 10 3/mcL Normal 150-450 [facility] ([place] Comment on above: Performed By: #### A DIFF, FOL, TSH, LIPID, ANEU, B12, FT3, CMP, CBC, GFR, FT4 #### [place] [address] Platelet mean volume (Bld) [Entitic vol] 9.1 fL Normal 6.4-10.5 [facility] ([place] Comment on above: Performed By: #### A DIFF, FOL, TSH, LIPID, ANEU, B12, FT3, CMP, CBC, GFR, FT4 #### [place] [address] RBC 4.14 10 6/mcL Low 4.50-6.00 [facility] ([place] Comment on above: Performed By: #### A DIFF, FOL, TSH, LIPID, ANEU, B12, FT3, CMP, CBC, GFR, FT4 #### [address] [address] WBC 7.6 10 3/mcL Normal 4.5-10.8 [facility] ([place] Comment on above: Performed By: #### A DIFF, FOL, TSH, LIPID, ANEU, B12, FT3, CMP, CBC, GFR, FT4 #### [place] [address] CMPon 03-23-2023 Albumin Level 3.8 G/dL Normal 3.2-4.8 [facility] ([place] Comment on above: Performed By: #### A DIFF, FOL, TSH, LIPID, ANEU, B12, FT3, CMP, CBC, GFR, FT4 #### [place] [address] Albumin/Globulin [Mass ratio] 1.5 {ratio} Normal 0.9-1.6 [facility] ([place] Comment on above: Performed By: #### A DIFF, FOL, TSH, LIPID, ANEU, B12, FT3, CMP, CBC, GFR, FT4 #### [address] [address] ALP [Catalytic activity/Vol] 75 U/L Normal 38-126 [facility] ([place] Comment on above: Performed By: #### A DIFF, FOL, TSH, LIPID, ANEU, B12, FT3, CMP, CBC, GFR, FT4 #### [address] [address] ALT [Catalytic activity/Vol] 45 U/L Normal 12-55 [facility] ([place] Comment on above: Performed By: #### A DIFF, FOL, TSH, LIPID, ANEU, B12, FT3, CMP, CBC, GFR, FT4 #### [address] [address] AST [Catalytic activity/Vol] 24 U/L Normal 8-34 [facility] ([place] Comment on above: Performed By: #### A DIFF, FOL, TSH, LIPID, ANEU, B12, FT3, CMP, CBC, GFR, FT4 #### [address] [address] Bili Total 0.80 mg/dL Normal 0.20-1.20 [facility] ([place] Comment on above: Result Comment: Use of this assay is not recommended for patients undergoing treatment with eltrombopag due to the potential for falsely elevated results. Performed By: #### A DIFF, FOL, TSH, LIPID, ANEU, B12, FT3, CMP, CBC, GFR, FT4 #### [address] [address] BUN/Creatinine Ratio 17.9 ratio Normal 10.0-22.0 [facility] ([place]) Comment on above: Performed By: #### A DIFF, FOL, TSH, LIPID, ANEU, B12, FT3, CMP, CBC, GFR, FT4 #### [address] [address] Calcium [Mass/Vol] 9.4 mg/dL Normal 8.7-10.4 [facility] ([place]) Comment on above: Performed By: #### A DIFF, FOL, TSH, LIPID, ANEU, B12, FT3, CMP, CBC, GFR, FT4 #### [address] [address] Chloride [Moles/Vol] 106 mmol/L Normal 98-110 [facility] ([place]) Comment on above: Performed By: #### A DIFF, FOL, TSH, LIPID, ANEU, B12, FT3, CMP, CBC, GFR, FT4 #### [address] [address] CO2 [Moles/Vol] 28 mmol/L Normal 22-32 [facility] ([place] Comment on above: Performed By: #### A DIFF, FOL, TSH, LIPID, ANEU, B12, FT3, CMP, CBC, GFR, FT4 #### [address] [address] Creatinine [Mass/Vol] 0.84 mg/dL Normal 0.60-1.40 [facility] ([place]) Comment on above: Performed By: #### A DIFF, FOL, TSH, LIPID, ANEU, B12, FT3, CMP, CBC, GFR, FT4 #### [address] [address] Electrolyte Balance 4.0 mEq/L Normal 4.0-15.0 [facility] ([place]) Comment on above: Performed By: #### A DIFF, FOL, TSH, LIPID, ANEU, B12, FT3, CMP, CBC, GFR, FT4 #### [address] [address] Globulin 2.5 G/dL Normal 1.5-3.8 [facility] ([place] Comment on above: Performed By: #### A DIFF, FOL, TSH, LIPID, ANEU, B12, FT3, CMP, CBC, GFR, FT4 #### [place] [id number] Glucose [Mass/Vol] 88 mg/dL Normal 82-115 [facility] ([place]) Comment on above: Performed By: #### A DIFF, FOL, TSH, LIPID, ANEU, B12, FT3, CMP, CBC, GFR, FT4 #### [place] [id number] Potassium [Moles/Vol] 4.5 mmol/L Normal 3.5-5.0 [facility] ([place]) Comment on above: Performed By: #### A DIFF, FOL, TSH, LIPID, ANEU, B12, FT3, CMP, CBC, GFR, FT4 #### [place] [id number] Sodium [Moles/Vol] 138 mmol/L Normal 136-145 [facility] ([place]) Comment on above: Performed By: #### A DIFF, FOL, TSH, LIPID, ANEU, B12, FT3, CMP, CBC, GFR, FT4 #### [place] [id number] Total Protein 6.3 G/dL Normal 5.7-8.2 [facility] ([place] Comment on above: Result Comment: No te - New Reference Range in effect 20 Performed By: #### A DIFF, FOL, TSH, LIPID, ANEU, B12, FT3, CMP, CBC, GFR, FT4 #### [place] [address] Urea nitrogen [Mass/Vol] 15.0 mg/dL Normal 8.0-22.0 [facility] ([place] Comment on above: Performed By: #### A DIFF, FOL, TSH, LIPID, ANEU, B12, FT3, CMP, CBC, GFR, FT4 #### [place] [address] FOLon 03-23-2023 Folate 17.29 ng/mL Normal 5.38-24.00 [facility] ([place] Comment on above: Performed By: #### A DIFF, FOL, TSH, LIPID, ANEU, B12, FT3, CMP, CBC, GFR, FT4 #### [place] [address] FT3on 03-23-2023 Free T3 [Mass/Vol] 4.03 pg/mL Normal 2.30-4.20 [facility] ([place]) Comment on above: Performed By: #### A DIFF, FOL, TSH, LIPID, ANEU, B12, FT3, CMP, CBC, GFR, FT4 #### [place] [address] FT4on 03-23-2023 Free T4 [Mass/Vol] 1.15 ng/dL Normal 0.89-1.76 [facility] ([place]) Comment on above: Result Comment: No te - New Reference Range in effect 20 Performed By: #### A DIFF, FOL, TSH, LIPID, ANEU, B12, FT3, CMP, CBC, GFR, FT4 #### [place] [address] LIPIDon 03-23-2023 Cholesterol [Mass/Vol] 241 mg/dL High 50-199 [facility] ([place]) Comment on above: Result Comment: Chol esterol Reference Interval: Less than 200 Desirable 200-239 Borderline high risk 240 and above High risk Performed By: #### A DIFF, FOL, TSH, LIPID, ANEU, B12, FT3, CMP, CBC, GFR, FT4 #### [address] [address] Cholesterol in HDL [Mass/Vol] 68 mg/dL High 40-59 [facility] ([place] Comment on above: Performed By: #### A DIFF, FOL, TSH, LIPID, ANEU, B12, FT3, CMP, CBC, GFR, FT4 #### [address] [address] Cholesterol in LDL [Mass/Vol] 138 mg/dL High 0-129 [facility] ([place] Comment on above: Performed By: #### A DIFF, FOL, TSH, LIPID, ANEU, B12, FT3, CMP, CBC, GFR, FT4 #### [address] [address] Triglyceride [Mass/Vol] 176 mg/dL High 3-149 [facility] ([place] Comment on above: Performed By: #### A DIFF, FOL, TSH, LIPID, ANEU, B12, FT3, CMP, CBC, GFR, FT4 #### [address] [address] TSHon 03-23-2023 TSH 1.654 mIU/mL Normal 0.550-4.780 [facility] ([place]) Comment on above: Result Comment: No te - New Reference Range in effect 20 Performed By: #### A DIFF, FOL, TSH, LIPID, ANEU, B12, FT3, CMP, CBC, GFR, FT4 #### [address] [address] Encounters Encounter Date Encounter Type Care Provider Facility Start: 08-07-2024 End: 08-07-2024 ambulatory INNA EVANGELISTA MD Facility:A Start: 04-27-2024 End: 04-27-[address] ESTEPHANIA MENDOZA MD Facility:A Start: 02-01-2024 End: 02-01-2024 ambulatory INNA EVANGELISTA MD Facility:A Start: 11-12-2023 End: 11-12-[address] Work Phone: Start: 11-12-2023 End: 11-12-2023 Patient encounter procedure [facility] [place] Work Phone: Start: 09-02-2023 End: 09-02-2023 ambulatory INNA EVANGELISTA MD Facility:A Start: 07-08-2023 End: 07-08-2023 ambulatory INNA EVANGELISTA MD Facility:A Start: 06-18-2023 End: 06-18-2023 ambulatory INNA EVANGELISTA MD Facility:A Start: 03-23-2023 End: 03-27-2023 ambulatory MD JONEL HECTOR MD Facility:A Start: 10-22-2021 End: 10-22-2021 Patient encounter procedure JONEL HECTOR MD [facility] Start: 08-24-2021 End: 08-24-2021 Patient encounter procedure JONEL HECTOR MD [facility] Procedures Date Procedure Procedure Detail Performing Clinician Start: 11-12-2023 Pelvis X-ray Arthroscopic knee operation JONEL HECTOR MD Plan of Treatment Date Care Activity Detail Author Cyclic citrullinated peptide IgG Ab [Units/volume] in Serum or Plasma [facility] spital HLA-B27 [Presence] by VIOLETTA with probe dete ction [facility] In-vitro immunologic test [facility] Mycobacterium tuberc ulosis tuberculin stimulated gamma interferon [Presence] in Blood [facility] Payers Date Payer Category Payer Self-pay 2022 Unknown [id number] 2017 Unknown [id number] 1960 Unknown [id number] 2.16.8 [id number] 1961 Unknown [id number] 2.16.8 [id number] 1961 Unknown [id number] 2.16.8 [id number] 1961 Unknown [id number] 2.16.8 [id number] 1961 Unknown [id number] 2.16.8 [id number] 1961 Unknown [id number] 2.16.8 [id number] 1961 Unknown [id number] 2.16.8 [id number] 1961 Unknown [id number] 2.16.8 [id number] Unknown [id number] 2.16.8 [id number] Social History Date Type Detail Facility Start: 07-05-2020 Never smoked t obacco (finding) [facility] Sex Assigned At [facility] Start: 1960 Sex Assigned At Male [facility] Evaluation + Plan note Laboratory Note Date & Type Note Facility Evaluation + Plan note Future Appointments Appointment Date:10/01/2021 03:30:00 PM Scheduled Provider:MD JONEL HECTOR JR, MD Location:[facility] Appointment Type:PC OV Follow Up Future Scheduled TestsComplete Blood Count 11/26/20Complete Blood Count 09/18/21Lipid Profile 09/18/21Complete Metabolic Panel 11/26/20Complete Metabolic Panel 09/18/21 [facility] Evaluation + Plan note LaboratoryRadiology Note Date & Type Note Facility Evaluation + Plan note Future Appointments Appointment Date:10/30/2021 03:00:00 PM Scheduled Provider:MD JONEL HECTOR JR, MD Location:[facility] Appointment Type:PC OV Future Scheduled TestsUric Acid 10/01/21Complete Blood Count 11/26/20Complete Blood Count 10/01/21Lipid Profile 10/01/21Sedimentation Rate Automated 10/01/21Complete Metabolic Panel 11/26/20Complete Metabolic Panel 10/01/21US Elastography Liver Only 10/01/21 [facility] Evaluation note Note Date & Type Note Facility Evaluation note No assessment information availa ble [facility] Work Phone: Hospital course Narrative Note Date & Type Note Facility Hospital course Narrative No data available for this section [facility] Hospital Discharge instructions Note Date & Type Note Facility Hospital Discharge instructions No data available for this section [facility] Chief Complaint and Reason for Visit Chief Complaint PAIN- COPY PCP Summary Purpose Family History No Family History Records FoundNo Family History Records FoundNo Family History Records Found Advance Directives No Advanced Directives Records FoundNo Advanced Directives Records FoundNo Advanced Directives Records Found Additional Source Comments Care Teams (unrecognized sec tion and content) Team Status: Active Member Role Status Dates INNA PARSONS Primary Care Provider Active Team Status: Inactive Member Role Status Dates ISSA KEITH Primary Care Provider Active Dr. Estephania Mendoza MD Attending Provider, Referring Provider Active Goals (unrecognized section and content) Goals may be documented in a n alternate section (unrecognized sect ion and content) No Status Records FoundNo Status Records FoundNo Status Records Found INFORMATION SOURCE (unrecogn ized section and content) DATE CREATED AUTHOR 12/11/2023 [facility] DATE CREATED AUTHOR AUTHOR'S ORGANIZ ATION 02/02/2024 [facility] ([place] DATE CREATED AUTHOR AUTHOR'S ORGANIZ ATION 08/09/2024 [facility] N FOR RECORDS PERTAINING TO PATIENTS WHO ARE OR HAVE BEEN ENROLLED IN A CHEMICAL DEPENDENCY/SUBSTANCEABUSE PROGRAM, SOME INFORMATION MAY BE OMITTED. This clinical summary was aggregated from multiple sources. Caution should be exercised in using it in the provision of clinical care. This summary normalizes information from multiple sources, and as a consequence, information in this document may materially change the coding, format and clinical context of patient data. In addition, data may be omitted in some cases. CLINICAL DECISIONS SHOULD BE BASED ON THE PRIMARY CLINICAL RECORDS. [facility] [employer] [facility]. provides no warranty or guarantee of the accuracy or completeness of information in this document.
== END | disposition home or self-care (01) ==
LOC: MTLAB 10:35
PROVIDERS: Referring Provider Internal Medicine Rheumatology; Visit Provider Internal Medicine Rheumatology
DX: M45.9 Ankylosing spondylitis of unspecified sites in spine (principal); Z79.899 Other long term (current) drug therapy
CPT/HCPCS: 36415; 80053; 85025; 85652; 86140